=== PATIENT | female | born 1950 | race Caucasian/White ===

== ENCOUNTER 2016-03-08 08:49 | Emergency (ER) | payer MEDICARE, BC ==
[2016-03-08 09:03] VITALS: BP 177/79
--- NOTE | 2016-03-08 09:25 | UC ---
Morgan Mena Adam, scribed for [facility] MD on 03/08/16 at 0858 . Respiratory Complaint HPI - HPI Summary HPI Summary: Pt is a 65 year old female presenting with a cough and chest tightness for the past 5 days. She states that she has been bringing up a lot of phlegm and it has begun to appear discolored. She was taking Pertussin DM and Mucinex but her symptoms have persisted. She states that prednisone has helped with similar symptoms in the past. Pt also c/o chills. She was recently diagnosed with COPD and she has been using o2 at night in order to keep her sat level above 90. She also has a nebulizer which she has been using intermittently. She is currently 91% on room air. PMHx of HTN, COPD, GERD, and dyslipidemia. Pt smokes "less than 6 little cigars" a day. FMHx of cardiac disease and HTN. - History of Current Complaint Stated Complaint: COUGH Hx Obtained From: Patient Hx Last Menstrual Period: Years ago. Onset/Duration: Gradual Onset, Lasting Days, Still Present Timing: Constant Severity Initially: Moderate Severity Currently: Moderate Character: Cough: Productive - Bringing up discolored phlegm Aggravating Factors: Nothing Alleviating Factors: Bronchodilator - Nebulizer, o2, prednisone Associated Signs And Symptoms: Positive: Chills, Pleuritic Chest Pain - Allergies/Home Medications Allergies/Adverse Reactions: Allergies Allergy/AdvReac Type Severity Reaction Status Date / Time Azithromycin Allergy Hives Verified 07/31/15 16:28 Clindamycin Allergy Swelling Verified 07/31/15 16:28 Doxycycline Allergy Swelling Verified 07/31/15 16:28 Of Face,Lips,& Throat Penicillins Allergy Hives Verified 07/31/15 16:28 PMH/Surg Hx/FS Hx/Imm Hx Endocrine History Of: Reports: Dyslipidemia Denies: Diabetes, Thyroid Disease, Hyperthyroidism, Hypothyroidism Cardiovascular History Of: Reports: Cardiac Disorders - "Irregular heart beat-- but not on medications.", Hypertension Denies: Pacemaker/ICD, Myocardial Infarction, Congestive Heart Failure, Atrial Fibrillation, Deep Vein Thrombosis, Bleeding Disorders Respiratory History Of: Reports: COPD, Bronchitis Denies: Asthma GI/ History Of: Reports: Gastroesophageal Reflux, Ulcer - hx of gastric ulcer in her 20's. Denies: Gastrointestinal Bleed, Gall Bladder Disease, Kidney Stones, Diverticulitis, Renal Disease, Urosepsis Neurological History Of: Denies: TIA, CVA, Dementia, Seizures, Migraine Psychological History Of: Denies: Anxiety, Depression, Bipolar Disorder, Schizophrenia, Post Traumatic Stress Disorder Cancer History Of: Denies: Lung Cancer, Colorectal Cancer, Breast Cancer, Prostate Cancer, Cervical Cancer Other History Of: Negative For: HIV, Hepatitis C - Surgical History Surgical History: Yes Surgery Procedure, Year, and Place: hysterectomy,. neurosurgery. LEFT VFocal Cord Stripped - Family History Known Family History: Positive: Cardiac Disease, Hypertension - Social History Occupation: Retired Lives: Alone Alcohol Use: None Substance Use Type: None Smoking Status (MU): Light Every Day Tobacco Smoker Type: Cigars Amount Used/How Often: 1/2 ppd Length of Time of Smoking/Using Tobacco: 40 yrs Household Exposure Type: Cigars - Immunization History Most Recent Influenza Vaccination: 2014 Most Recent Tetanus Shot: unk Most Recent Pneumonia Vaccination: 2013 Review of Systems Constitutional: Chills Respiratory: Cough Cardiovascular: Chest Pain - Tightness with cough. Musculoskeletal: Other: - Chronic arm/shoulder pain All Other Systems Reviewed And Are Negative: Yes Physical Exam Triage Information Reviewed: Yes Appearance: Well-Appearing, No Pain Distress, Well-Nourished Vital Signs: Initial Vital Signs Temp 98.1 F 03/08/16 08:57 Pulse 96 03/08/16 08:57 Resp 18 03/08/16 08:57 BP 177/79 03/08/16 08:57 Pulse Ox 91 03/08/16 08:57 Eyes: Positive: Conjunctiva Clear ENT: Positive: Hearing grossly normal, Pharynx normal, TMs normal. Negative: Muffled/hoarse voice Neck: Positive: Supple, No Lymphadenopathy Respiratory: Positive: Other: - Scattered rhonchi with crackles in the left base. Cardiovascular: Positive: Other: - 1/6 systolic murmur Abdomen Description: Positive: Nontender, No Organomegaly, Soft Bowel Sounds: Positive: Present Musculoskeletal: Positive: Strength Intact, ROM Intact Neurological: Positive: Alert Psychological: Positive: Age Appropriate Behavior Skin: Negative: rashes Respiratory Course/Dx - Differential Dx/Diagnosis Differential Diagnosis/HQI/PQRI: Other - PNA vs bronchitis with bronchospasm vs COPD Provider Diagnoses: Exacerbation of COPD Discharge - Discharge Plan Condition: Stable Disposition: HOME Prescriptions: Levofloxacin TAB* [Levaquin TAB*] 500 mg PO DAILY #7 tab Prednisone 20 mg PO BID #6 tab MDD 3 Patient Education Materials: COPD (Chronic Obstructive Pulmonary Disease) (ED) , Chronic Lung Disease and Infection Prevention (ED) Referrals: Dennys Bhat MD [Primary Care Provider] - Additional Instructions: WE DISCUSSED: 1. Your COPD make your lungs more vulnerable to infection. 2. See instructions below. 3. Use your inhalation device at home 3 times a day for the next 2 days to open up your lungs. 4. Warm showers and hot tea and honey. 5. Predinsone for 3 days, 20mg, twice a day. 6. Levaquin for 7 days. 7. See your doctor as planned in 2 days. The documentation as recorded by the Morgan leigh Adam accurately reflects the service I personally performed and the decisions made by me, Steven Dixon MD.
== END 2016-03-08 09:35 | disposition home or self-care (01) ==
LOC: UCEAST 08:49
DX: J44.1 Chronic obstructive pulmonary disease with (acute) exacerbation (principal); Z88.1 Allergy status to other antibiotic agents; Z88.0 Allergy status to penicillin; F17.210 Nicotine dependence, cigarettes, uncomplicated
CPT/HCPCS: 99212; G0463

== ENCOUNTER 2016-11-05 07:14 | Emergency (ER) | payer MEDICARE, BC ==
[2016-11-05 07:25] VITALS: BP 144/73
--- NOTE | 2016-11-05 08:14 | UC ---
Dee Mena Rebecca, scribed for Fadumo Perez MD on 11/05/16 at 0730 . Respiratory Complaint HPI - HPI Summary HPI Summary: Pt is a 65 y/o F who presents to [facility] with concerns of bronchitis. She c/o cough, chest congestion, chills, bilateral ear pain and CP described as tightness secondary to congestion. Sx have been present for 4-5 days and have been worsening. Took Mucinex and Robitussin DM 3 days ago. Additionally c/o diarrhea and mild abdominal pain secondary to an ulcer that she is being treated for. Reports that she is in no pain currently, ranked pain 0/10 in triage. Denies vomiting and dysuria. Pt reports she experiences similar sx every year and was evaluated by [facility] when sx presented previously and was D/C with Rx for Levaquin and Prednisone. Pt confirms she has taken Keflex previously with no reactions. Mother is in a correction where there is bronchitis present. PMHx COPD - has an inhaler and nebulizer which she last used at 2100. Uses O2 at night. She admits to having issues with her kidneys, uncertain what her creatinine level is, but has an appt 11/09 with her PCP for f/u. - History of Current Complaint Chief Complaint: UCRespiratory Stated Complaint: COUGH RESP ISSUE Time Seen by Provider: 11/05/16 07:21 Hx Obtained From: Patient Hx Last Menstrual Period: Years ago. Onset/Duration: Lasting Days - 4-5 days, Still Present Severity Currently: None Pain Intensity: 0 Pain Scale Used: 0-10 Numeric Aggravating Factors: Nothing Alleviating Factors: Nothing Associated Signs And Symptoms: Positive: Chills, Nasal Congestion Related History: Similar Episode/Dx as: - Prior episodes recurring every year - Allergies/Home Medications Allergies/Adverse Reactions: Allergies Allergy/AdvReac Type Severity Reaction Status Date / Time Azithromycin Allergy Hives Verified 11/05/16 07:26 Clindamycin Allergy Swelling Verified 11/05/16 07:26 Doxycycline Allergy Swelling Verified 11/05/16 07:26 Of Face,Lips,& Throat Penicillins Allergy Hives Verified 11/05/16 07:26 PMH/Surg Hx/FS Hx/Imm Hx Cardiovascular History: Hypertension Respiratory History: COPD GI/ History: Ulcer - In her 20s Other History Of: Negative For: HIV, Hepatitis C - Surgical History Surgical History: Yes Surgery Procedure, Year, and Place: hysterectomy,. neurosurgery. LEFT VFocal Cord Stripped - Family History Known Family History: Positive: Cardiac Disease, Hypertension - Social History Alcohol Use: None Substance Use Type: None Smoking Status (MU): Light Every Day Tobacco Smoker Type: Cigars Amount Used/How Often: 1/2 ppd Length of Time of Smoking/Using Tobacco: 40 yrs Household Exposure Type: Cigars - Immunization History Most Recent Influenza Vaccination: 2014 Most Recent Tetanus Shot: unk Most Recent Pneumonia Vaccination: 2013 Review of Systems Constitutional: Chills Skin: Negative Eyes: Negative ENT: Ear Ache - Bilateral Respiratory: Cough, Other - Chest congestion Cardiovascular: Chest Pain - secondary to congestion Gastrointestinal: Abdominal Pain - mild, Diarrhea Genitourinary: Negative Motor: Negative Neurovascular: Negative Musculoskeletal: Negative Neurological: Negative Psychological: Negative All Other Systems Reviewed And Are Negative: Yes - Comments Additional Review of Systems Comments: NEGATIVE:Vomiting and dysuria. Physical Exam Triage Information Reviewed: Yes Appearance: Well-Appearing Vital Signs: Initial Vital Signs Temp 98.1 F 11/05/16 07:21 Pulse 83 11/05/16 07:21 Resp 20 11/05/16 07:21 BP 144/73 11/05/16 07:21 Pulse Ox 97 11/05/16 07:21 Vital Signs Reviewed: Yes Eye Exam: Normal Eyes: Positive: Conjunctiva Clear ENT: Positive: Pharyngeal erythema, TMs normal, Other: - Post nasal drip with no pharyngeal exudate Dental Exam: Normal Neck: Positive: Supple, Nontender, No Lymphadenopathy Respiratory: Positive: Lungs clear, No respiratory distress, No accessory muscle use, Decreased breath sounds - DIminished breath sounds bilaterally, Wheezing - Bialteral scattered wheezes, Other: - Speaking full sentences. Negative: Crackles, Rhonchi, Stridor Cardiovascular: Positive: RRR, No Murmur, Pulses Normal Abdomen Description: Positive: Nontender, Soft Musculoskeletal Exam: Normal Neurological Exam: Normal Psychological Exam: Normal Skin Exam: Normal Diagnostic Evaluation - Laboratory O2 Sat by Pulse Oximetry: 97 Respiratory Course/Dx - Course Course Of Treatment: Pt is a 65 y/o F who presents to [facility] with concerns of bronchitis. She c/o cough, chest congestion, chills, bilateral ear pain and CP described as tightness secondary to congestion. Sx have been present for 4-5 days and have been worsening. Took Mucinex and Robitussin DM 3 days ago. Additionally c/o diarrhea and mild abdominal pain secondary to an ulcer. Reports that she is in no pain currently, ranked pain 0/10 in triage. Denies vomiting and dysuria. Pt reports she experiences similar sx every year and was evaluated by [facility] when sx presented previously and was D/C with Rx for Levaquin and Prednisone. Pt confirms she has taken Keflex previously with no reactions. Mother is in a correction where there is bronchitis present. PMHx COPD - has an inhaler and nebulizer which she last used at 2100. Uses O2 at night. Pt will be D/C to home with Dx of bronchitis with Rx for Keflex and Prednsone, directions to take probiotics with on Abx and a follow up with her PCP. She understands and agrees. Elevated BP noted. Allergies noted. Medications reviewed this visit. -Will avoid quinolones b/c kidney disease. - discussed using minimal amt of prednisone as possible. -adv to stop smoking - Differential Dx/Diagnosis Provider Diagnoses: Bronchitis Discharge - Discharge Plan Condition: Stable Disposition: HOME Prescriptions: Cephalexin CAP* [Keflex CAP*] 500 mg PO TID #30 cap Prednisone 20 mg PO BID #10 tab Patient Education Materials: Acute Bronchitis (ED) Referrals: Dennys Bhat MD [Primary Care Provider] - 4 Days Additional Instructions: Make sure to take a probiotic daily while on antibiotics to help prevent a potential complication of antibiotic use called c diff. Some well known brands that can be found OTC are florastor, align and [employer]. Make sure to complete the entire prescription unless advised otherwise by your health care provider. We discusse risks of prednisone including but not limited to anxiety, agitation , insomnia, GI upset, elevated blood pressures and blood sugar readings, adrenal crisis and avascular necrosis of the hip. Make sure to use your nebulizer at least every 4-6 hrs. You should be using the oxygen regularly while you are sick. You should consider readdressing daily maintenance COPD inhalers with your PCP. The documentation as recorded by the Dee leigh Rebecca accurately reflects the service I personally performed and the decisions made by , Fadumo Perez MD.
== END 2016-11-05 08:08 | disposition home or self-care (01) ==
LOC: UCEAST 07:14
DX: J40 Bronchitis, not specified as acute or chronic (principal); R09.81 Nasal congestion; I10 Essential (primary) hypertension; J44.9 Chronic obstructive pulmonary disease, unspecified; Z90.710 Acquired absence of both cervix and uterus; Z88.1 Allergy status to other antibiotic agents; Z88.0 Allergy status to penicillin; F17.210 Nicotine dependence, cigarettes, uncomplicated
CPT/HCPCS: 99212; G0463

== ENCOUNTER 2018-03-29 10:44 | Emergency (ER) | payer MEDICARE, BC ==
--- NOTE | 2018-03-29 11:35 | ED ---
Complex/Multi-Sys Presentation - HPI Summary HPI Summary: 67 year old F brought in by ambulance to [facility] with a chief complaint of chest tightness, chest heaviness since one week, worse since two days ago. The patient rates the pain 8/10 in severity. Symptoms aggravated by nothing. Symptoms alleviated by nothing. Patient reports difficulty breathing, productive cough, increasing weakness. - History Of Current Complaint Chief Complaint: EDGeneral Time Seen by Provider: 03/29/18 11:19 Hx Obtained From: Patient Onset/Duration: Lasting Weeks - 1, Still Present, Worse Since - 2 days ago Timing: Constant Severity Currently: Severe Aggravating Factor(s): Nothing Alleviating Factor(s): Nothing Associated Signs And Symptoms: Positive: Other - difficulty breathing, productive cough, increasing weakness - Allergies/Home Medications Allergies/Adverse Reactions: Allergies Allergy/AdvReac Type Severity Reaction Status Date / Time azithromycin Allergy Hives Verified 03/29/18 11:07 clindamycin Allergy Swelling Verified 03/29/18 11:07 doxycycline Allergy Swelling Verified 03/29/18 11:07 Of Face,Lips,& Throat Penicillins Allergy Hives Verified 03/29/18 11:07 Home Medications: Home Medications Ascorbic Acid TAB* [Vitamin C TAB*] 500 mg PO DAILY 03/29/18 [History Confirmed 03/29/18] Irbesartan (NF) [Avapro (NF)] 150 mg PO DAILY 03/29/18 [History Confirmed ] Losartan TAB* [Cozaar TAB*] 25 mg PO DAILY 03/29/18 [History Confirmed 03/29/18] Multivitamins/Minerals TAB* [Theragran/minerals TAB*] 1 tab PO DAILY 03/29/18 [ History Confirmed 03/29/18] Ranitidine TAB (NF) [Zantac TAB (NF)] 150 mg PO BID 03/29/18 [History Confirmed 03/29/18] Rosuvastatin (NF) [Crestor] 20 mg PO DAILY 03/29/18 [History Confirmed 03/29/18] PMH/Surg Hx/FS Hx/Imm Hx Previously Healthy: No Endocrine/Hematology History: Denies: Hx Diabetes, Hx Thyroid Disease Cardiovascular History: Reports: Hx Hypercholesterolemia, Hx Hypertension Denies: Hx Congestive Heart Failure, Hx Deep Vein Thrombosis, Hx Myocardial Infarction, Hx Pacemaker/ICD Respiratory History: Reports: Hx Chronic Bronchitis, Hx Chronic Obstructive Pulmonary Disease (COPD), Other Respiratory Problems/Disorders - emphysema Denies: Hx Asthma, Hx Lung Cancer GI History: Reports: Hx Ulcer - hx of gastric ulcer in her 20's. Denies: Hx Gall Bladder Disease, Hx Gastrointestinal Bleed, Hx Urosepsis History: Denies: Hx Kidney Stones, Hx Renal Disease Sensory History: Reports: Hx Contacts or Glasses Opthamlomology History: Reports: Hx Contacts or Glasses Neurological History: Denies: Hx Dementia, Hx Migraine, Hx Seizures, Hx Transient Ischemic Attacks (TIA) Psychiatric History: Denies: Hx Anxiety, Hx Depression, Hx Schizophrenia, Hx Bipolar Disorder - Surgical History Surgery Procedure, Year, and Place: hysterectomy,. neurosurgery. LEFT VFocal Cord Stripped Infectious Disease History: No Infectious Disease History: Reports: Hx Shingles Denies: Hx Clostridium Difficile, Hx Hepatitis, Hx Human Immunodeficiency Virus (HIV), Hx of Known/Suspected MRSA, Hx Tuberculosis, History Other Infectious Disease, Traveled Outside the [place] in Last 30 Days - Family History Known Family History: Positive: Cardiac Disease, Hypertension - Social History Alcohol Use: None Hx Substance Use: No Substance Use Type: Reports: None Hx Tobacco Use: Yes Smoking Status (MU): Light Every Day Tobacco Smoker Type: Cigars Amount Used/How Often: 1/2 ppd Length of Time of Smoking/Using Tobacco: 40 yrs Review of Systems Positive: Other - chest tightness, chest heaviness Positive: Shortness Of Breath, Cough Neurological: Other - increasing weakness All Other Systems Reviewed And Are Negative: Yes Physical Exam - Summary Physical Exam Summary: Appearance: The patient is well-nourished in no acute distress and in no acute pain. Skin: The skin is warm and dry and skin color reflects adequate perfusion. HEENT: The head is normocephalic and atraumatic. The pupils are equal and reactive. The conjunctivae are clear and without drainage. Nares are patent and without drainage. Mouth reveals dry mucous membranes and the throat is without erythema and exudate. The external ears are intact. The ear canals are patent and without drainage. The tympanic membranes are intact. Neck: The neck is supple with full range of motion and non-tender. There are no carotid bruits. There is no neck vein distension. Respiratory: Decreased breath sounds Cardiovascular: Heart is regular rate and rhythm. There is no murmur or rub auscultated. There is no peripheral edema and pulses are symmetrical and equal. Abdomen: The abdomen is soft and non-tender. There are normal bowel sounds heard in all four quadrants and there is no organomegaly palpated. Musculoskeletal: There is no back tenderness noted. Extremities are non-tender with full range of motion. There is good capillary refill. There is no peripheral edema or calf tenderness elicited. Neurological: Patient is alert and oriented to person, place and time. The patient has symmetrical motor strength in all four extremities. Cranial nerves are grossly intact. Deep tendon reflexes are symmetrical and equal in all four extremities. Psychiatric: The patient has an appropriate affect and does not exhibit any anxiety or depression Triage Information Reviewed: Yes Vital Signs On Initial Exam: Initial Vitals Temp Pulse Resp BP Pulse Ox 98.1 F 86 18 162/79 100 03/29/18 11:01 03/29/18 11:01 03/29/18 11:01 03/29/18 11:01 03/29/18 11:01 Vital Signs Reviewed: Yes Diagnostics - Vital Signs Vital Signs Temp Pulse Resp BP Pulse Ox 03/29/18 11:01 98.1 F 86 18 162/79 100 - Laboratory Result Diagrams: 03/29/18 12:23 03/29/18 12:22 Lab Statement: Any lab studies that have been ordered have been reviewed, and results considered in the medical decision making process. - Radiology CXR Radiology Interpretation Completed By: Radiologist Summary of Radiographic Findings: 1. Stigmata of obstructive lung disease. No acute pulmonary or cardiac process evident. 2. Bone density appears decreased throughout. Osteoporotic appearing compression fractures at the approximate T4, T11, T12, and L1 levels compared with the 2015 exam without gross acute or subacute features. ED physician has reviewed this report. - EKG 1150 Cardiac Rate: NL - 78 BPM EKG Rhythm: Sinus Rhythm Summary of EKG Findings: Non-specific ST changes in anterior leads Complex Multi-Symp Course/Dx Course Of Treatment: Ms. Diaz presented to the emergency department complaining of fatigue, chest tightness and mild shortness of breath. She has a history of COPD. She complains of a productive cough. On exam she was nontoxic in appearance with stable vitals and clear lungs. She was given a DuoNeb and Solu-Medrol and IV fluids. At that point she felt better and was discharged with a diagnosis of bronchitis and COPD exacerbation. - Diagnoses Provider Diagnoses: Bronchitis, Dehydration Discharge - Sign-Out/Discharge Documenting (check all that apply): Patient Departure - Discharge Patient Received Moderate/Deep Sedation with Procedure: No - Discharge Plan Condition: Stable Disposition: HOME Prescriptions: Levofloxacin TAB* [Levaquin TAB*] 750 mg PO DAILY #10 tab methylPREDNISolone [Medrol Dosepak 4 MG*] 4 mg PO .SEE PATSY INSTRUCTION #1 tab Patient Education Materials: Dehydration (ED), Acute Bronchitis (ED) Referrals: Dennys Bhat MD [Primary Care Provider] - 3 Days Additional Instructions: Follow up with your primary care provider in 3 days. Return to the Emergency Department for new or worsening symptoms. - Billing Disposition and Condition Condition: STABLE Disposition: Home - Attestation Statements Document Initiated by Linda: Yes Documenting Scribe: Lay Gonzales Provider For Whom Linda is Documenting (Include Credential): Khadar Ibrahim MD Scribe Attestation: Lay Mena, scribed for Khadar Ibrahim MD on 03/29/18 at 2031. Scribe Documentation Reviewed: Yes Provider Attestation: The documentation as recorded by the siennaibLay [email or web address] accurately reflects the service I personally performed and the decisions made by , Khadar Ibrahim MD Status of Scribe Document: Viewed
[2018-03-29] MEDS ORDERED: methylPREDNISolone 125 MG* 2 ML VIAL IV ONE (11:45)
[2018-03-29] MEDS ORDERED: Albuterol/Ipratropium NEB.SOL* Albuterol 2.5 MG/Ipratropium 0.5 MG 3 ML INH ONE (11:45)
[2018-03-29 12:32] LABS: Influenza A Molecular NEGATIVE (Negative); Influenza B Molecular NEGATIVE (Negative)
[2018-03-29 12:36] LABS: ABS Basophils 0.1 10^3/ul (0-0.2); ABS Eosinophils 0 10^3/ul (0-0.6); ABS Lymphocytes 0.8 10^3/ul (1.0-4.8); ABS Monocytes 0.6 10^3/ul (0-0.8); ABS Neutrophils 6.3 10^3/ul (1.5-7.7); ABS Nucleated RBC 0 10^3/ul; Eosinophil % 0.4 %; Hematocrit 29 % (35-47); Hemoglobin 10.1 g/dl (12.0-16.0); Lymphocyte % 9.8 %; Mean Corpuscular HGB Conc 35 g/dl (31-36); Mean Corpuscular Hemoglobin 33 pg (27-31); Mean Corpuscular Volume 92 fL (80-97); Mean Platelet Volume 7.3 fL (7.4-10.4); Nucleated Red Blood Cells % 0; Platelet Count 343 10^3/ul (150-450); Red Cell Distribution Width 13 % (10.5-15); White Blood Count 7.7 10^3/ul (3.5-10.8)
[2018-03-29] MEDS ORDERED: NS 0.9% 1000 ML** 1,000 ML IV ONE (12:52)
[2018-03-29 13:07] LABS: Albumin 4.1 g/dL (3.2-5.2); Albumin/Globulin Ratio 2.1 (1-3); BUN/Creatinine Ratio 31.3 (8-20); C Reactive Protein 21.55 mg/L (<8.01); Calcium 9.2 mg/dL (8.6-10.3); EGFR African American 155.6 (>60); EGFR Non-African American 128.6 (>60); Potassium 3.9 mmol/L (3.5-5.0); Total Bilirubin 0.4 mg/dL (0.2-1.0); Total Protein 6.1 g/dL (6.4-8.9); Troponin I 0.02 ng/mL (<0.04)
[2018-03-29 16:55] VITALS: BP 151/70
== END 2018-03-29 16:56 | disposition home or self-care (01) ==
LOC: ED 10:44
DX: J40 Bronchitis, not specified as acute or chronic (principal); E86.0 Dehydration; R05 Cough; I10 Essential (primary) hypertension; R06.02 Shortness of breath; F17.210 Nicotine dependence, cigarettes, uncomplicated
CPT/HCPCS: 36415; 71046; 80053; 83605; 84484; 85025; 86140; 87040; 93005; 96361; 96374; 99284; A9270-GY; J2930

== ENCOUNTER 2018-04-04 13:46 | Inpatient (IN) | payer MEDICARE, BC ==
--- NOTE | 2018-04-04 15:04 | ED ---
Abdominal Pain/Female - HPI Summary HPI Summary: This patient is a 67-year-old female who presents to the emergency room with a chief complaint of being very weak and an accidental fall because of her weakness. Patient reports that about a week ago she was diagnosed with bronchitis and she was placed on Levaquin. Patient reports that her symptoms of productive cough and generalized weakness and getting worse. The patient has history of COPD. She also reports that since yesterday she noticed black stools with occasional bright red blood. The patient reports that her last colonoscopy was one and have years ago with [facility]. Patient denies any chest pain, denies any abdominal pain, denies any nausea or vomiting. Patient has no other complaints. - History of Current Complaint Chief Complaint: EDShortnessOfBreath Stated Complaint: WEAKNESS Time Seen by Provider: 04/04/18 14:19 Hx Obtained From: Patient Hx Last Menstrual Period: Years ago. ?: No Onset/Duration: Gradual Onset, Still Present, Worse Since Timing: Constant Severity Initially: Moderate Severity Currently: Moderate Pain Intensity: 0 Radiates: No Aggravating Factor(s): Nothing Alleviating Factor(s): Nothing Allergies/Adverse Reactions: Allergies Allergy/AdvReac Type Severity Reaction Status Date / Time azithromycin Allergy Hives Verified 03/29/18 11:07 clindamycin Allergy Swelling Verified 03/29/18 11:07 doxycycline Allergy Swelling Verified 03/29/18 11:07 Of Face,Lips,& Throat Penicillins Allergy Hives Verified 03/29/18 11:07 PMH/Surg Hx/FS Hx/Imm Hx Previously Healthy: No Endocrine/Hematology History: Denies: Hx Diabetes, Hx Thyroid Disease Cardiovascular History: Reports: Hx Hypercholesterolemia, Hx Hypertension Denies: Hx Congestive Heart Failure, Hx Deep Vein Thrombosis, Hx Myocardial Infarction, Hx Pacemaker/ICD Respiratory History: Reports: Hx Chronic Bronchitis, Hx Chronic Obstructive Pulmonary Disease (COPD), Other Respiratory Problems/Disorders - emphysema Denies: Hx Asthma, Hx Lung Cancer GI History: Reports: Hx Ulcer - hx of gastric ulcer in her 20's. Denies: Hx Gall Bladder Disease, Hx Gastrointestinal Bleed, Hx Urosepsis History: Denies: Hx Kidney Stones, Hx Renal Disease Sensory History: Reports: Hx Contacts or Glasses Opthamlomology History: Reports: Hx Contacts or Glasses Neurological History: Denies: Hx Dementia, Hx Migraine, Hx Seizures, Hx Transient Ischemic Attacks (TIA) Psychiatric History: Denies: Hx Anxiety, Hx Depression, Hx Schizophrenia, Hx Bipolar Disorder - Surgical History Surgery Procedure, Year, and Place: hysterectomy,. neurosurgery. LEFT VFocal Cord Stripped Infectious Disease History: No Infectious Disease History: Reports: Hx Shingles Denies: Hx Clostridium Difficile, Hx Hepatitis, Hx Human Immunodeficiency Virus (HIV), Hx of Known/Suspected MRSA, Hx Tuberculosis, History Other Infectious Disease, Traveled Outside the [place] in Last 30 Days - Family History Known Family History: Positive: Cardiac Disease, Hypertension - Social History Alcohol Use: None Hx Substance Use: No Substance Use Type: Reports: None Hx Tobacco Use: Yes Smoking Status (MU): Former Smoker Type: Cigars Amount Used/How Often: 1/2 ppd Length of Time of Smoking/Using Tobacco: 40 yrs Review of Systems Constitutional: Negative Positive: Fatigue, Other - Weakness Eyes: Negative ENT: Negative Cardiovascular: Negative Positive: Shortness Of Breath, Cough Positive: Other - Melena Genitourinary: Negative Musculoskeletal: Negative Skin: Negative Neurological: Negative Psychological: Normal All Other Systems Reviewed And Are Negative: Yes Physical Exam - Summary Physical Exam Summary: VITAL SIGNS: Reviewed. GENERAL: Patient is a thin female who is lying comfortable in the stretcher. Patient is not in any acute respiratory distress. HEAD AND FACE: No signs of trauma. No ecchymosis, hematomas or skull depressions. No sinus tenderness. EYES: PERRLA, EOMI x 2, No injected conjunctiva, no nystagmus. EARS: Hearing grossly intact. Ear canals and tympanic membranes are within normal limits. MOUTH: Oropharynx within normal limits. Small superficial abrasion in the lower lip. No need for sutures at this time NECK: Supple, trachea is midline, no adenopathy, no JVD, no carotid bruit, mild c-spine tenderness at palpation, neck with full ROM. CHEST: Symmetric, no tenderness at palpation LUNGS: Positive crackles at bases of lungs CVS: Regular rate and rhythm, S1 and S2 present, no murmurs or gallops appreciated. ABDOMEN: Soft, non-tender. No signs of distention. No rebound no guarding, and no masses palpated. Bowel sounds are normal. EXTREMITIES: FROM in all major joints, no edema, no cyanosis or clubbing. Right forearm skin abrasion NEURO: Alert and oriented x 3. No acute neurological deficits. Speech is normal and follows commands. SKIN: Dry and warm REctal exam: Normal sphincter tone, positive melena Vital Signs On Initial Exam: Initial Vitals Temp Pulse Resp BP Pulse Ox 98.8 F 112 20 119/54 98 04/04/18 13:54 04/04/18 13:54 04/04/18 13:54 04/04/18 13:54 04/04/18 13:54 Diagnostics - Vital Signs Vital Signs Temp Pulse Resp BP Pulse Ox 04/04/18 13:54 98.8 F 112 20 119/54 98 - Laboratory Result Diagrams: 04/04/18 14:39 04/04/18 14:39 Lab Statement: Any lab studies that have been ordered have been reviewed, and results considered in the medical decision making process. Abdominal Pain Fem Course/Dx - Course Course Of Treatment: Blood work shows wbcs of 9.4, hemoglobin 6.8, hematocrit 19 and platelets 136. BUN is 25, glucose 112, and total protein of 5.3. Therefore the patient is consistent with a GI bleed for which the patient was given IV fluids, Protonix and I consulted with Dr. Walker. I also order 2 units for PRBCs. Consent from the patient is in the chart. Since patient was complaining of neck pain and headache after she fell I decided to do a head CT and C-spine CT. impression: Is status post CODE CLERK shunt. With slight ventricles decreased in size compared to January 2007. No acute intracranial pathology. CT C-spine IMPRESSION: 1. OSTEOPENIA. 2. MILD DEGENERATIVE DISC DISEASE AND OSTEOARTHRITIS. 3. ATHEROSCLEROSIS. 4. NO ACUTE OSSEOUS INJURY TO THE CERVICAL SPINE. 5. INCIDENTALLY NOTED IS A 0.3 CM NODULE OF THE RIGHT LUNG APEX. THE RECOMMENDATIONS FOR FOLLOW UP AND MANAGEMENT OF AN INCIDENTALLY DETECTED PULMONARY NODULE LESS THAN 6 MM IN SIZE, IN A PATIENT WITHOUT A HISTORY OF MALIGNANCY, INCLUDE NO FOLLOW UP FOR A LOW-RISK. PATIENT OR OPTIONAL FOLLOW UP CT IN 12 MONTHS FOR A HIGH RISK PATIENT. I discussed my physical exam and findings with Dr. Purvis from the hospital services who accepted the patient for admission. The patient is hemodynamically stable alert and oriented 3. - Diagnoses Differential Diagnosis: Positive: Constipation, Diverticulitis, Other - GI bleed Provider Diagnoses: GI bleed, Head contusion, Neck pain - Critical Care Time Critical Care Time: 75-104 min Discharge - Sign-Out/Discharge Documenting (check all that apply): Patient Departure Patient Received Moderate/Deep Sedation with Procedure: No - Discharge Plan Condition: Stable Disposition: ADMITTED TO [facility] Referrals: Dennys Bhat MD [Primary Care Provider] - - Billing Disposition and Condition Condition: STABLE Disposition: Admitted to [facility]
[2018-04-04 15:07] LABS: ABS Basophils 0 10^3/ul (0-0.2); ABS Eosinophils 0 10^3/ul (0-0.6); ABS Lymphocytes 0.7 10^3/ul (1.0-4.8); ABS Monocytes 0.9 10^3/ul (0-0.8); ABS Neutrophils 7.9 10^3/ul (1.5-7.7); ABS Nucleated RBC 0 10^3/ul; Eosinophil % 0.1 %; Hematocrit 19 % (35-47); Hemoglobin 6.8 g/dl (12.0-16.0); Lymphocyte % 7.6 %; Mean Corpuscular HGB Conc 35 g/dl (31-36); Mean Corpuscular Hemoglobin 33 pg (27-31); Mean Corpuscular Volume 93 fL (80-97); Mean Platelet Volume 7.1 fL (7.4-10.4); Nucleated Red Blood Cells % 0; Platelet Count 436 10^3/ul (150-450); Red Blood Count 2.09 10^6/ul (4.00-5.40); Red Cell Distribution Width 14 % (10.5-15); White Blood Count 9.4 10^3/ul (3.5-10.8)
[2018-04-04] MEDS ORDERED: Pantoprazole IV* 40 MG IV ONE ×2 (15:13→17:41)
[2018-04-04] MEDS ORDERED: NS 0.9% 1000 ML** 1,000 ML IV ONE (15:13)
[2018-04-04 15:20] LABS: Albumin 3.3 g/dL (3.2-5.2); Albumin/Globulin Ratio 1.7 (1-3); BUN/Creatinine Ratio 46.3 (8-20); C Reactive Protein 6.64 mg/L (<8.01); Calcium 8.8 mg/dL (8.6-10.3); EGFR African American 135.8 (>60); EGFR Non-African American 112.3 (>60); Potassium 3.8 mmol/L (3.5-5.0); Total Bilirubin 0.2 mg/dL (0.2-1.0); Total Protein 5.3 g/dL (6.4-8.9)
[2018-04-04 15:22] LABS: Troponin I 0.01 ng/mL (<0.04)
[2018-04-04 16:02] LABS: Influenza A Molecular NEGATIVE (Negative); Influenza B Molecular NEGATIVE (Negative)
[2018-04-04] MEDS ORDERED: Ondansetron INJ* 2 MG/ML VIAL IV PRN (17:15)
[2018-04-04] MEDS ORDERED: Pantoprazole IV* 40 MG IV SCH (18:00)
--- NOTE | 2018-04-04 18:10 | CONS ---
GASTROENTEROLOGY CONSULT: DATE OF CONSULT: 04/04/18 REQUESTING PROVIDER: ED. Patient was seen in ED. HISTORY OF PRESENT ILLNESS: Ms. Daiz is a 67-year-old woman with a history of COPD, on continuous oxygen; hypertension; hyperlipidemia; GERD; and remote history of PUD, who presents to the ED with weakness and fall. The patient also reports melena concerning for GI bleed. GI consulted. On interview, Ms. Diaz says that she has been feeling poorly for the past one to two weeks. She was diagnosed about a week ago with bronchitis and was placed on a Medrol Dosepak and Levaquin. Shortly after starting these medications, she developed nausea and vomiting several times a day as well as abdominal pain and change in stools. She states that the nausea is fairly continuous. She vomits at least once or twice a day. Emesis consists of what she just tried to eat. She has not noticed any coffee-ground emesis or hematemesis. She complains of abdominal pain in the right lower quadrant with some radiation to the back as well as discomfort in upper abdomen. She has had a significant increase in GERD during this period of time. She describes feeling more constipated last week. For the past day and a half or so, she has been able to have some bowel movements. The bowel movements were initially quite hard and required manual removal of the stool balls, although the stool has been softer in the last 24 hours or so. Stool has been black. She did see some small amounts of bright red blood, which she felt was potentially hemorrhoid related. No large amounts of dark red blood or bright red blood seen. The patient had at least 4 black bowel movements earlier today and became quite weak during last bowel movement. She subsequently fell and hit her face resulting in abrasion to her lip. She denies any loss of consciousness during this fall. She presented to the ED for evaluation. On arrival to the ER, initial vital signs were notable for heart rate of 112 and a blood pressure of 119/54. Initial labs notable for a hemoglobin of 6.8 and hematocrit of 19. This is in comparison to a hemoglobin of 10.1 and a hematocrit of 29 on 03/29/18. Labs also notable for a mildly elevated BUN of 25. The patient was given IV fluids and a unit of blood was ordered. Symptomatically, she continues to have some heartburn and sore throat. She also complains of some upper abdominal discomfort and nausea. Ms. Diaz reports that she uses ibuprofen 800 mg daily. She also uses aspirin 81 mg daily. She thinks she is on some type of acid suppression medicine twice daily. Med rec reviewed and includes Zantac 150 twice daily is listed. The patient follows with a physician at [place]. She thinks that she has had an upper endoscopy and a colonoscopy performed within the last 1 to 2 years. She thinks there may have been a polyp or two removed from the colon. PAST MEDICAL HISTORY: Includes COPD, on continuous O2, hypertension; hyperlipidemia; GERD; episode of peptic ulcer disease when she was in her 20s. PAST SURGICAL HISTORY: Includes hysterectomy and a vocal cord surgery. MEDICATIONS: Include: 1. Avapro 150 daily. 2. Losartan 25 mg daily. 3. Crestor 20 mg daily. 4. Ranitidine 150 b.i.d. 5. Multivitamin. 6. Vitamin C. 7. Aspirin 81 mg daily. 8. Ibuprofen 800 mg daily Recently, she completed a course of Medrol Dosepak and Levaquin 750 mg daily. ALLERGIES: Include AZITHROMYCIN, CLINDAMYCIN, DOXYCYCLINE, and PENICILLIN. FAMILY HISTORY: No known GI or liver disease. SOCIAL HISTORY: The patient lives alone with 1 cat. She is a smoker and had most recently been smoking half a pack a day. She quit smoking 10 days ago. She denies any significant alcohol use. No drug use. REVIEW OF SYSTEMS: Notable for chronic COPD with intermittent bronchitis episodes. She uses supplemental oxygen. She has had a recent fracture in her spine after a fall and complains of some back pain. Her review of systems is otherwise negative except as mentioned above. PHYSICAL EXAM: Vital Signs: Most recent vital signs include a heart rate of 96, blood pressure 135/59, respiratory rate of 24, and 100% on 2.5 L. General: Chronically ill, frail-appearing woman, appears older than stated age, no acute distress. Speaks in complete sentences. HEENT: Small cut with dried blood on her lower lip. Mucous membranes mildly dry. Cardiovascular: Regular rate and rhythm. No murmurs, rubs, or gallops. Pulm: Coarse breath sounds and mild crackles at the bases. No wheezing. No significantly increased work of breathing. Abdomen: Positive bowel sounds. Soft, tender in the epigastrium. No rebound or guarding. Rectal: Not repeated. ED provider had recently performed rectal and noted melena. Extremities: No edema. Neuro: A and O x3. Grossly normal. DIAGNOSTIC STUDIES/LAB DATA: Labs reviewed. Notable for a white count of 9.4, hemoglobin of 6.8, hematocrit 19, platelets 436, MCV of 93. Comprehensive panel notable for a BUN of 25 with a creatinine of 0.54. Lactic acid is 0.7. LFTs normal with the exception of a low AST at 10. Flu swab negative. Imaging: The patient had a chest x-ray performed, which was negative for acute findings. She also had a noncontrast head CT, which was notable for SHEET WRITER shunt with slit-like ventricles, no intracranial pathology noted. She had a cervical spine CT performed, which demonstrated osteopenia, mild degenerative disk disease and osteoarthritis, 0.03 cm nodule of the right lung apex, atherosclerosis. IMPRESSION AND RECOMMENDATIONS: Ms. Diaz is a 67-year-old woman with a history of chronic obstructive pulmonary disease, on continuous O2; gastroesophageal reflux disease; and remote history of peptic ulcer disease, who is admitted with weakness, fall, and melena suggestive of an upper gastrointestinal bleed. Currently, patient is hemodynamically stable. Her mild tachycardia seems to have improved with IV fluids. Her blood pressure remains within normal limits. She is significantly anemic on labs, which appears to be acute on chronic given mild anemia noted last week. I am most suspicious for an upper GI bleed given the presence of melena as well as the mildly elevated BUN. The patient's risk factors for an upper gastrointestinal bleed include use of ibuprofen 800 mg daily, aspirin 81 mg daily, and recent steroid use. Differential includes: esophagitis, gastritis, PUD, [place]ul[place], AVM or mass. Colonic source of bleeding less likely. 1. Agree with blood transfusion and resuscitation. 2. Continue to monitor CBC every 8 hours. 3. Start pantoprazole IV b.i.d. 4. Clear diet today okay as long as the patient remains hemodynamically stable. NPO after midnight. 5. We will tentatively plan for EGD tomorrow for evaluation of upper gastrointestinal bleeding source. 6. Avoid NSAIDs. 7. Please obtain prior endoscopy reports from [facility] Please contact GI if acute change in clinical status. Thank you very much for this consult. [id number]/[facility] #: [id number] [facility] HOSPITALVernon
[2018-04-04] MEDS: Pantoprazole* 80 mg IN NS 80 MG/250 ML BAG IVPB SCH (19:17)
--- NOTE | 2018-04-04 21:25 | HP ---
HISTORY AND PHYSICAL: DATE OF ADMISSION: 04/04/18 PRIMARY CARE PROVIDER: Dennys Bhat MD. OTHER PROVIDER: Carmen Mckay MD. ATTENDING PHYSICIAN: Marguerite Purvis MD * (dictated by LETITIA Valladares ). CHIEF COMPLAINT: 1. Anemia. 2. Fall. HISTORY OF PRESENT ILLNESS: Ms. Diaz is a 67-year-old female with a past medical history of hypertension and hyperlipidemia, who presented to the ER today with complaints of falling due to weakness. She states that she fell around 11:30 this morning. She described feeling dizzy and lightheaded, and then having slid down the wall on her right side, and then falling to the floor in a controlled manner. She does state that she hit her head and that she does have pain in the right arm and shoulder. When asked where she has pain, she states "everything hurts." She states that her pain is a 9/10. She admits to using ibuprofen 200 mg every 5 to 6 hours for pain. Of note is that the patient was here approximately 1-1/2 weeks ago with shortness of breath and was diagnosed with bronchitis. She was placed on steroids and Levaquin. Today, she is found to be anemic with a hemoglobin of 6.8. She has a positive stool for occult blood. She admits to having melena that she describes as black and tarry. She states that she has had this for approximately 1-1/2 days. She states that today she had a reddish-black stool. She admits to decreased appetite, abdominal pain, and constipation. She states the abdominal pain and constipation are intermittent for several months. The patient states that she has been having difficulty eating, stating she feels like she always has a lump in her throat and she has difficulty swallowing. She reports a decreased appetite. She states that she sees an Ear, Nose, and Throat doctor, who is following her due to erosions in the esophagus and "enlarged vocal cords." She states that she has shortness of breath on occasion, abdominal pain, blurred vision, palpitations, dizziness, lightheadedness, and lower back pain. She denies hematochezia, nausea, vomiting, headache or pain in the calves. The patient states that her last colonoscopy was approximately 1-1/2 years ago. Her last EGD was approximately 6 months ago.While in the ER, she had an extensive workup, which included head and C-spine CT scans, an ECG, a chest x- ray, as well as blood work. The hospitalist team were asked to evaluate the patient for admission. PAST MEDICAL HISTORY: 1. Hypertension. 2. Hyperlipidemia. 3. Chronic obstructive pulmonary disease. 4. History of gastric ulcers when the patient was in her 20s. PAST SURGICAL HISTORY: Hysterectomy, left vocal cord stripped. HOME MEDICATIONS: 1. Albuterol 0.083 inhalation, nebulized, q.6 hours p.r.n. 2. Amlodipine 10 mg p.o. daily. 3. Ascorbic acid 500 mg p.o. daily, double in winter months. 4. Aspirin 81 mg p.o. daily. 5. Vitamins p.o. daily. 6. Losartan 50 mg 1 tab p.o. daily. 7. Ranitidine 1 tab p.o. b.i.d. 8. Rosuvastatin 20 mg p.o. daily. 9. Tramadol 50 mg 1 tab p.o. q.8 hours p.r.n., max daily dose 150. ALLERGIES: AZITHROMYCIN - hives, CLINDAMYCIN - swelling, DOXYCYCLINE - swelling of face, lips, and throat, PENICILLIN - hives. FAMILY HISTORY: Mother approximately 1 year ago. She had a history of atrial fibrillation and congestive heart failure. She of old age and had a hip fracture at that time. Father of brain cancer at the age of 73. Maternal grandfather had heart issues. The patient states that on the father's side of her family, there is type 2 diabetes. SOCIAL HISTORY: The patient states that she quit using tobacco approximately 10 days ago. She previously smoked a half-pack per day for about 40 years. The patient denies alcohol use. She states that she used to use alcohol socially, but no longer uses alcohol. The patient currently lives alone in her own house with her cat. In the event that she is unable to make her own decisions, she appoints either her son, Jayden Shaw, or her sister, Taylor Marquez, to make medical decisions for her. REVIEW OF SYSTEMS: A 10-point review of systems was performed and all the pertinent positives and negatives are in the HPI. All other systems are negative. PHYSICAL EXAMINATION GENERAL: Ms. Diaz is a well-developed, thin, older white woman, who is sitting up in bed. She is in no acute distress. She appears pale. She appears slightly older than her stated age. VITAL SIGNS: Temperature 98.8, heart rate 96, respiratory rate 24, oxygen saturation 100%, blood pressure 135/59. HEENT: Visual isaac are grossly intact. Her pupils are equally round and reactive to light. Extraocular movements are intact. Her sclerae are without icterus. Her hearing is grossly intact. External auditory canals are patent and free of cerumen. Tympanic membranes intact with visible landmarks. Nares are patent and nonerythematous with moist mucous membranes. Oral mucous membranes are slightly dry. There appear to be no lesions. The pharynx is clear. It is noted that the patient has an abrasion on the right lower lip. NECK: Full range of motion. Thyroid is not palpable. Trachea is at midline. There is no lymphadenopathy. CARDIOVASCULAR: S1 and S2 present. Regular rate and rhythm. There is a harsh holosystolic murmur, grade 3 holosystolic murmur. No rubs or gallops. No JVD. ABDOMEN: Bowel sounds in all quadrants. The abdomen is soft. The abdomen is diffusely tender to palpation. There is no hepatosplenomegaly. EXTREMITIES: Skin is warm bilaterally. The lower extremities are dry, with flaking skin. There is no edema. No clubbing or cyanosis. Radial pulses are 2 + bilaterally. Pedal pulses are not palpable. NEURO: The patient is awake, alert, and oriented x3. Cranial nerves are grossly intact. The patient is able to move all of her extremities. Motor strength is 4/5 in the upper and lower extremities bilaterally. DIAGNOSTIC STUDIES/LAB DATA: Chest x-ray 04/04/18, impression: No evidence for active cardiopulmonary disease. Brain CT 04/04/18, impression: Status post DEXIGRAPH OPERATOR shunting with slit-like ventricles , decreased in size compared to 01/31/07. No acute intracranial pathology. Cervical spine CT, 04/04/18, impression: Osteopenia, mild degenerative disc disease and osteoarthritis, atherosclerosis. No acute osseous injury to the cervical spine. Incidentally noted is a 0.3 cm nodule of the right lung apex. The recommendations for followup and management of an incidentally detected pulmonary nodule, less than 6 mm in size, in a patient without a history of malignancy include no followup for a low risk patients or optional followup CT in 12 months for higher risk patients. Laboratory Studies: WBC 9.4, RBC 2.09, HGB 6.8, HCT 19, platelets 436. Sodium 135, potassium 3.8, chloride 101, carbon dioxide 30, BUN 25, creatinine 0.54, lactic acid 0.7, calcium 8.8. Total bilirubin 0.20, AST 10, ALT 24, alk phos 48 , troponin 0.01, CRP 6.68, BNP 31, total protein 5.3. ASSESSMENT AND PLAN: Ms. Diaz is a 67-year-old female with a past medical history as described above, who presents to the ER today with complaints of weakness and fall, and was found to have anemia and possible gastrointestinal bleed. The patient will be admitted as inpatient for: 1. Anemia: Due to the presence of melena over the last couple days, it is likely that the patient has a gastrointestinal bleed. Gastroenterology has been consulted and are planning for an EGD tomorrow. Currently, with the patient's hemoglobin of 6.8, two units of packed red blood cells are ordered for transfusion. Protonix 40 was ordered in the ER. Another dose of Protonix 40 will be given for a loading dose total of 80, and then the patient will be placed on Protonix drip. The patient will be placed on clear liquid diet. She will be made n.p.o. after midnight. 2. Dysphagia: The patient is being followed with an Ear, Nose, and Throat doctor, Dr. Reeves. The patient states that she was told she has erosions in the esophagus plus enlarged vocal cords. The patient will have an EGD tomorrow. She may need a barium swallow if she continues to have dysphagia. 3. Fall: The patient was cleared via CT after her fall. Tylenol ordered for pain, morphine ordered p.r.n. severe pain. 4. Pulmonary nodule: As an incidental finding on the patient's neck CT, there is a 0.3 cm pulmonary nodule in the right lung apex. Due to the past history of smoking, recommended a followup CT in 12 months. The patient should follow up with her primary care physician for this. 5. Chronic obstructive pulmonary disease: Albuterol nebulizer solutions will be ordered, as at home. 6. Hypertension: Amlodipine and losartan will be continued. 7. Coronary artery disease: Crestor will be continued. Hold aspirin. 8. Fluids, electrolytes, and nutrition: The patient will be placed on a clear liquid diet until midnight and then n.p.o. after midnight in preparation for EGD tomorrow. 9. Code status: The patient is full code. 10. DVT prophylaxis: Based on the DVT Risk Assessment, the patient is moderate risk. Chemical prophylaxis will be deferred at the time as the patient may have gastrointestinal bleed. SCDs have been ordered. TIME SPENT: Approximately 60 minutes were spent on this admission, greater than half of that time was spent with the patient and her sister obtaining history, performing a physical, and reviewing the plan of care. The case has been reviewed with my attending, Dr. Purvis, who is in agreement with the plan of care. LETITIA SERRA [id number]/[facility] #: [id number] [place]
[2018-04-04] MEDS: Famotidine TAB* 20 MG PO SCH (21:40)
[2018-04-04] MEDS: Morphine VIAL* 4 MG/ML VIAL (1 ml vial) IV PRN (22:52)
[2018-04-05] MEDS: Acetaminophen TAB* 325 MG PO PRN (00:47)
[2018-04-05] MEDS: Albuterol 2.5 MG/3 ML NEB.SOL* (0.083%) INH PRN (01:15)
[2018-04-05] MEDS: Pantoprazole* 80 mg IN NS 80 MG/250 ML BAG IVPB SCH ×2 (05:23→19:50)
[2018-04-05 07:00] LABS: Calcium 8.5 mg/dL (8.6-10.3); EGFR African American 148.5 (>60); EGFR Non-African American 122.7 (>60); Potassium 3.7 mmol/L (3.5-5.0)
[2018-04-05 07:02] LABS: ABS Basophils 0 10^3/ul (0-0.2); ABS Eosinophils 0 10^3/ul (0-0.6); ABS Lymphocytes 1.1 10^3/ul (1.0-4.8); ABS Monocytes 0.6 10^3/ul (0-0.8); ABS Neutrophils 4.4 10^3/ul (1.5-7.7); ABS Nucleated RBC 0 10^3/ul; Eosinophil % 0.4 %; Hematocrit 24 % (35-47); Hemoglobin 8.3 g/dl (12.0-16.0); Mean Corpuscular HGB Conc 35 g/dl (31-36); Mean Corpuscular Hemoglobin 32 pg (27-31); Mean Corpuscular Volume 90 fL (80-97); Mean Platelet Volume 6.9 fL (7.4-10.4); Nucleated Red Blood Cells % 0; Platelet Count 297 10^3/ul (150-450); Red Blood Count 2.64 10^6/ul (4.00-5.40); Red Cell Distribution Width 15 % (10.5-15); White Blood Count 6.2 10^3/ul (3.5-10.8)
[2018-04-05] MEDS: NS 0.9% 1000 ML** 1,000 ML IV SCH ×2 (08:30→19:54)
[2018-04-05] MEDS: Morphine VIAL* 4 MG/ML VIAL (1 ml vial) IV PRN ×2 (08:30→23:02)
[2018-04-05] MEDS: Losartan TAB* 25 MG PO SCH (08:36)
[2018-04-05] MEDS: Famotidine TAB* 20 MG PO SCH (08:37)
[2018-04-05] MEDS: amLODIPine TAB* 5 MG PO SCH (08:37)
[2018-04-05] MEDS: Multivitamins/Minerals TAB PO SCH (08:37)
[2018-04-05] MEDS: Atorvastatin* 40 MG TAB PO SCH (08:37)
[2018-04-05] MEDS: Ascorbic Acid TAB* 500 MG PO SCH (08:37)
[2018-04-05] MEDS ORDERED: Losartan TAB* 25 MG PO SCH (09:00)
[2018-04-05] MEDS ORDERED: Morphine INJ* 2 MG/ML 1 ML SYRINGE (TWO MG - NEW SYRINGE VERSION) IV ONE (11:26)
--- NOTE | 2018-04-05 15:40 | PN ---
Subjective Date of Service: 04/05/18 Interval History: Patient seen this morning. She was on clear liquid tolerating it well. no fever or chills. Awaiting GI procedure for EGD. Currently on protonix drip, s/ p 2 units pRBC;s yesterday. BP stable Past Medical History: Unchanged from Admission Objective Active Medications: Acetaminophen (Tylenol Tab*) 650 mg PO Q4H PRN PRN Reason: FEVER/PAIN Last Admin: 04/05/18 00:47 Dose: 650 mg Albuterol (Ventolin 2.5 Mg/3 Ml Neb.Mariam*) 2.5 mg INH Q6H PRN PRN Reason: SOB/WHEEZING Last Admin: 04/05/18 01:15 Dose: 2.5 mg Amlodipine Besylate (Norvasc Tab*) 10 mg PO DAILY [facility] Last Admin: 04/05/18 08:37 Dose: 10 mg Ascorbic Acid (Vitamin C Tab*) 500 mg PO DAILY [facility] Last Admin: 04/05/18 08:37 Dose: 500 mg Atorvastatin Calcium (Lipitor*) 40 mg PO DAILY [facility] Last Admin: 04/05/18 08:37 Dose: 40 mg Sodium Chloride (Ns 0.9% 1000 Ml) 1,000 mls @ 75 mls/hr IV PER RATE [facility] Last Admin: 04/05/18 08:30 Dose: 75 mls/hr Pantoprazole Sodium (Protonix Iv Bag*) 80 mg in 250 mls @ 25 mls/hr IVPB Q10H [facility] Last Admin: 04/05/18 05:23 Dose: 25 mls/hr Losartan Potassium (Cozaar Tab*) 50 mg PO DAILY [facility] Last Admin: 04/05/18 08:36 Dose: 50 mg Morphine Sulfate (Morphine Vial*) 2 mg IV Q4H PRN PRN Reason: SEVERE PAIN Last Admin: 04/05/18 08:30 Dose: 2 mg Multivitamins/Minerals (Theragran/Minerals Tab*) 1 tab PO DAILY [facility] Last Admin: 04/05/18 08:37 Dose: 1 tab Ondansetron HCl (Zofran Inj*) 4 mg IV Q4H PRN PRN Reason: NAUSEA/VOMITING Vital Signs - 8 hr 04/05/18 04/05/18 04/05/18 08:00 08:30 08:31 Temperature Pulse Rate Respiratory 18 18 Rate Blood Pressure 145/52 (mmHg) O2 Sat by Pulse Oximetry 04/05/18 04/05/18 04/05/18 10:53 11:30 11:31 Temperature 98.7 F Pulse Rate 66 Respiratory 20 18 16 Rate Blood Pressure 143/43 (mmHg) O2 Sat by Pulse 100 Oximetry 04/05/18 12:24 Temperature Pulse Rate Respiratory 18 Rate Blood Pressure (mmHg) O2 Sat by Pulse Oximetry Oxygen Devices in Use Now: Nasal Cannula Appearance: awake, alert. no acute distress Eyes: No Scleral Icterus Ears/Nose/Mouth/Throat: Clear Oropharnyx Neck: NL Appearance and Movements; NL JVP, Trachea Midline Respiratory: Symmetrical Chest Expansion and Respiratory Effort, Clear to Auscultation Cardiovascular: RRR Abdominal: NL Sounds; No Tenderness; No Distention Extremities: No Edema - Nutrition: Malnutrition Diagnosis/Plan Malnutrition Assessment by Registered Dietitian: Malnutrition Assessment Clinical Characteristics Chronic,Moderate Malnutrition Assessment: - 16-19% wt loss x past ~ 9 months Criteria - Moderate temporal and clavicle muscle wasting - < 75% estimated energy expenditure > 1 month Malnutrition Assessment: Will offer an oral nutritional supplement, such Interventions as Ensure Enlive, upon diet advancement as indicated. Malnutrition Assessment: Goals 1. Ultimately adequate intake to promote wt repletion and maintain hydration w/o additional undesired wt loss. Result Diagrams: 04/05/18 06:29 04/05/18 06:29 Microbiology and Other Data: Microbiology 04/04/18 14:45 Stool Occult Blood ([facility]) - Final Stool 04/04/18 14:25 Influenza Types A,B Antigen - Final Nasopharyngeal Specimen received for Influenza A/B Molecular testing Assess/Plan/Problems-Billing Assessment: 67 year old female admitted for fall due to dizziness she was found to be anemic with Hct of 19 associated with melena and NSAID's use for acute on chronic low back pain. S/p 2 units pRBC on admission, currently on Protonix drip awaiting EGD - Patient Problems (1) GI bleed due to NSAIDs Current Visit: Yes Status: Acute Code(s): K92.2 - GASTROINTESTINAL HEMORRHAGE, UNSPECIFIED; T39.395A - ADVERSE EFFECT OF NONSTEROIDAL ANTI- INFLAMMATORY DRUGS, INIT SNOMED Code(s): 59700397 Comment: - Given melena and NSAID's I suspect due to upper GI bleed. - S/p 2 units pRBC's on admission - On Protonix drip - Awaiting formal GI consultations and EGD procedure. (2) Anemia Current Visit: Yes Status: Acute Code(s): D64.9 - ANEMIA, UNSPECIFIED SNOMED Code(s): 329844294 Comment: - Given melena and NSAID's I suspect due to upper GI bleed. - S/p 2 units pRBC's on admission - On Protonix drip - Awaiting formal GI consultations and EGD procedure. (3) Back pain Current Visit: Yes Status: Acute Code(s): M54.9 - DORSALGIA, UNSPECIFIED SNOMED Code(s): 729548782 Comment: - Morphine 2 mg IV prn now for abdominal pain but it serve to help her back. Will Discontinue once done wiht EGD - On tyelnol prn. - Educated patient to avoid any further NSAID at home (4) COPD (chronic obstructive pulmonary disease) Current Visit: Yes Status: Acute Code(s): J44.9 - CHRONIC OBSTRUCTIVE PULMONARY DISEASE, UNSPECIFIED SNOMED Code(s): 19728270 Comment: - PRN albuterol (5) Hypertension Current Visit: No Status: Acute Code(s): I10 - ESSENTIAL (PRIMARY) HYPERTENSION SNOMED Code(s): 92855368 Comment: - SBP stable. Continue losartan and amlodipine. (6) Hyperlipidemia Current Visit: No Status: Chronic Code(s): E78.5 - HYPERLIPIDEMIA, UNSPECIFIED SNOMED Code(s): 04761190 Comment: - Continue atorvastatin 40 mg HS. (7) DVT prophylaxis Current Visit: Yes Status: Acute Code(s): [id number] - SNOMED Code(s): 798740554 Comment: SCD given her GI bleed
[2018-04-05] MEDS ORDERED: Midazolam* 1 MG/ML 10 ML VIAL (10 MG) ONE (16:05)
[2018-04-05] MEDS ORDERED: fentaNYL* 50 MCG/ML 2 ML VIAL (100 MCG VIAL) ONE (16:05)
--- NOTE | 2018-04-05 17:49 | PN ---
Progress Note - Progress Note Date of Service: 04/05/18 Note: GI EGD Note Findings: No fresh or old blood in stomach or esophagus. Atrophic gastric mucosa. Fresh blood in duodenum. 2 ulcers 0.8 in bulb prox cloop with oozing. Treated with bicap at 20W, epi 2cc each with good effect. Further distal brisk dieulafoy lesion distal c-loop active arterial squirt. 3 endoclips placed with good effect. Bicap at 20W to area. No further bleeding A/P ICU H/H q6, stat now Keep 2 units PRBC on hold High risk for rebleeding, let surgical service know of existance. If rebleed consider 2nd look, embolization or surgery. Discussed with Dr. Derick Gamez 04/05/18 [id number]
[2018-04-05 18:27] LABS: Hematocrit 26 % (35-47); Hemoglobin 8.7 g/dl (12.0-16.0)
[2018-04-05] MEDS ORDERED: EPINEPHrine SYR 0.1MG/ML* SYRINGE ONE (18:49)
--- NOTE | 2018-04-05 22:05 | PRO ---
CC: Dennys Bhat MD * ESOPHAGOGASTRODUODENOSCOPY REPORT: DATE OF PROCEDURE: 04/05/18 PRIMARY CARE PHYSICIAN: Dennys Bhat MD INDICATION FOR PROCEDURE: Melena. PROCEDURE PERFORMED: Complete esophagogastroduodenoscopy with hemostasis, Endoclip placement, BICAP, and epinephrine injection. MEDICATIONS GIVEN: Include 10 mg IV midazolam, 100 mcg IV fentanyl. DESCRIPTION OF PROCEDURE: After the EGD procedure including the risks, benefits , and alternatives, with the risks not limited to perforation, surgery, missed lesions, and/or were explained to the patient, written informed consent was obtained. IV medication was given and a bite-block was placed between the teeth. The adult Olympus gastroscope was inserted into the oropharynx, into the tubular esophagus. The tubular esophagus had mild variability to the GE junction but no gross blood or lesions. The scope was advanced through the lower esophageal sphincter into the stomach. There was atrophic mucosa noted, but no distinct ulceration. On retroflexion, no hiatal hernia or significant Raul erosion was visualized. The scope was then advanced through the widely patent pylorus. Here, fresh blood was found. In the posterior portion of the bulb, there was a 0.8 cm ulcer with oozing actively. Next to this, about 1 to 2 cm into the C-loop, was an additional ulceration, again with active oozing around that area. Each ulcer was injected with 2 cc of epinephrine and BICAP'd at 20 garcia with good effect. No further bleeding was noted from each of these ulcers. I then continued into the further portion of the C-loop where again bright red blood was noted. At the superior portion of the distal C-loop, a Dieulafoy lesion with active arterial squirt was noted. This was briskly bleeding at the time. Three Endoclips were placed over this vessel with very good effect. At the conclusion of the Endoclip placement, no further bleeding was noted. I did BICAP and touch up the area at 20 garcia for further hemostasis. At the conclusion of the procedure, there was no active bleeding at the time. The scope was then removed from the patient. She tolerated the procedure well, and due to the findings, was transferred to the ICU for further care. IMPRESSION: 1. Complete esophagogastroduodenoscopy with hemostasis. BICAP, epinephrine injection, and Endoclip placement. 2. Actively bleeding arterial Dieulafoy lesion, distal C-loop, status post 3 Endoclips and BICAP as above. 3. Two active oozing ulcerations in the posterior bulb and proximal C-loop, treated with BICAP at 20 garcia and epinephrine 1:10,000, 4 cc total, 2 per ulcer. RECOMMENDATIONS: Recommend transferring the patient to ICU for closer monitoring given the active bleed. Even though hemostasis appears to be achieved, high risk for rebleeding. I discussed with the primary care physician , Dr. Dennys Bhat, who will let the surgical service know the patient to be aware in case further ongoing blood loss. Recommend H and H q.6 hours. We will get a stat hemoglobin at this point. Continue with PPI drip. Keep 2 units of PRBCs on hold at all times. If rebleed, consider second look endoscopy versus embolization versus surgery pending clinical course. At some point, a H. pylori stool antigen should be done; however, she did consume a large amount of NSAIDs and cystitis is more likely the etiology of her ulcers. [id number]/[facility] #: [id number] [facility]NERSVern[facility]
[2018-04-06 00:28] LABS: Hematocrit 23 % (35-47); Hemoglobin 7.9 g/dl (12.0-16.0)
[2018-04-06] MEDS: Albuterol 2.5 MG/3 ML NEB.SOL* (0.083%) INH PRN ×2 (00:48→19:55)
[2018-04-06] MEDS: Morphine VIAL* 4 MG/ML VIAL (1 ml vial) IV PRN ×3 (04:03→15:49)
[2018-04-06] MEDS ORDERED: Pantoprazole* 80 mg IN NS 80 MG/250 ML BAG IVPB SCH (06:00)
[2018-04-06] MEDS: Pantoprazole* 80 mg IN NS 80 MG/250 ML BAG IVPB SCH ×2 (06:15→17:34)
[2018-04-06 06:48] LABS: ABS Basophils 0 10^3/ul (0-0.2); ABS Eosinophils 0 10^3/ul (0-0.6); ABS Lymphocytes 1.2 10^3/ul (1.0-4.8); ABS Monocytes 0.6 10^3/ul (0-0.8); ABS Neutrophils 6.6 10^3/ul (1.5-7.7); ABS Nucleated RBC 0 10^3/ul; Eosinophil % 0.6 %; Hematocrit 29 % (35-47); Hemoglobin 9.7 g/dl (12.0-16.0); Lymphocyte % 13.9 %; Mean Corpuscular HGB Conc 34 g/dl (31-36); Mean Corpuscular Hemoglobin 31 pg (27-31); Mean Corpuscular Volume 90 fL (80-97); Mean Platelet Volume 6.8 fL (7.4-10.4); Nucleated Red Blood Cells % 0; Platelet Count 279 10^3/ul (150-450); Red Blood Count 3.18 10^6/ul (4.00-5.40); Red Cell Distribution Width 16 % (10.5-15); White Blood Count 8.5 10^3/ul (3.5-10.8)
[2018-04-06 06:52] LABS: BUN/Creatinine Ratio 28.6 (8-20); Calcium 8.2 mg/dL (8.6-10.3); EGFR African American 181.6 (>60); Magnesium 1.9 mg/dL (1.9-2.7); Phosphorus 3.9 mg/dL (2.5-5.0); Potassium 4.2 mmol/L (3.5-5.0)
[2018-04-06] MEDS: NS 0.9% 1000 ML** 1,000 ML IV SCH ×2 (09:24→23:03)
[2018-04-06] MEDS: Atorvastatin* 40 MG TAB PO SCH ×2 (09:33→17:34)
[2018-04-06] MEDS: Losartan TAB* 25 MG PO SCH (09:33)
[2018-04-06] MEDS: amLODIPine TAB* 5 MG PO SCH (09:33)
[2018-04-06 12:13] LABS: Hematocrit 29 % (35-47); Hemoglobin 9.9 g/dl (12.0-16.0)
--- NOTE | 2018-04-06 16:54 | PN ---
Subjective Date of Service: 04/06/18 Interval History: Patient seen today, in ICU. She did require 2 units last night after her midnight H/H. This morning is up to Hct 29. 12 noon stable at noon. no active bleed. Currently is NPO will advance to clear liquid. Will have her out of bed to chair. Complains of dry mouth. Past Medical History: Unchanged from Admission Objective Active Medications: Acetaminophen (Tylenol Tab*) 650 mg PO Q4H PRN PRN Reason: FEVER/PAIN Last Admin: 04/05/18 00:47 Dose: 650 mg Albuterol (Ventolin 2.5 Mg/3 Ml Neb.Mariam*) 2.5 mg INH Q6H PRN PRN Reason: SOB/WHEEZING Last Admin: 04/06/18 00:48 Dose: 2.5 mg Amlodipine Besylate (Norvasc Tab*) 10 mg PO DAILY [facility] Last Admin: 04/06/18 09:33 Dose: 10 mg Atorvastatin Calcium (Lipitor*) 40 mg PO DAILY [facility] Last Admin: 04/05/18 08:37 Dose: 40 mg Sodium Chloride (Ns 0.9% 1000 Ml) 1,000 mls @ 75 mls/hr IV PER RATE [facility] Last Admin: 04/06/18 09:24 Dose: 75 mls/hr Pantoprazole Sodium (Protonix Iv Bag*) 80 mg in 250 mls @ 25 mls/hr IVPB Q10H [facility] Last Admin: 04/06/18 06:15 Dose: 25 mls/hr Losartan Potassium (Cozaar Tab*) 50 mg PO DAILY [facility] Last Admin: 04/06/18 09:33 Dose: 50 mg Morphine Sulfate (Morphine Vial*) 2 mg IV Q4H PRN PRN Reason: SEVERE PAIN Last Admin: 04/06/18 15:49 Dose: 2 mg Multivitamins/Minerals (Theragran/Minerals Tab*) 1 tab PO DAILY [facility] Last Admin: 04/05/18 08:37 Dose: 1 tab Ondansetron HCl (Zofran Inj*) 4 mg IV Q4H PRN PRN Reason: NAUSEA/VOMITING Vital Signs - 8 hr 04/06/18 04/06/18 04/06/18 09:00 09:01 09:15 Temperature Pulse Rate 55 55 57 Respiratory 15 17 16 Rate Blood Pressure 143/46 125/46 (mmHg) O2 Sat by Pulse 99 99 100 Oximetry 04/06/18 04/06/18 04/06/18 09:26 09:30 09:31 Temperature Pulse Rate 65 Respiratory 20 15 21 Rate Blood Pressure 135/71 (mmHg) O2 Sat by Pulse 100 Oximetry 04/06/18 04/06/18 04/06/18 09:45 10:00 10:15 Temperature Pulse Rate 57 61 60 Respiratory 17 21 13 Rate Blood Pressure 148/47 157/56 140/49 (mmHg) O2 Sat by Pulse 100 100 100 Oximetry 04/06/18 04/06/18 04/06/18 10:30 10:45 11:00 Temperature Pulse Rate 66 64 64 Respiratory 22 18 24 Rate Blood Pressure 156/58 148/53 131/52 (mmHg) O2 Sat by Pulse 100 99 99 Oximetry 04/06/18 04/06/18 04/06/18 11:17 11:30 11:45 Temperature Pulse Rate 70 67 74 Respiratory 16 18 18 Rate Blood Pressure 146/46 136/46 125/52 (mmHg) O2 Sat by Pulse 99 99 99 Oximetry 04/06/18 04/06/18 04/06/18 12:00 12:15 12:31 Temperature Pulse Rate 70 69 84 Respiratory 25 20 21 Rate Blood Pressure 126/47 144/54 135/67 (mmHg) O2 Sat by Pulse 99 99 99 Oximetry 04/06/18 04/06/18 13:00 15:49 Temperature 97.1 F Pulse Rate Respiratory 19 Rate Blood Pressure (mmHg) O2 Sat by Pulse Oximetry Oxygen Devices in Use Now: Nasal Cannula Appearance: Awake, alert. no acute distress Ears/Nose/Mouth/Throat: NL Teeth, Lips, Gums Neck: NL Appearance and Movements; NL JVP, Trachea Midline Respiratory: Symmetrical Chest Expansion and Respiratory Effort, Clear to Auscultation Cardiovascular: NL Sounds; No Murmurs; No JVD Abdominal: NL Sounds; No Tenderness; No Distention Skin: No Rash or Ulcers Neurological: Alert and Oriented x 3 - Nutrition: Malnutrition Diagnosis/Plan Malnutrition Assessment by Registered Dietitian: Malnutrition Assessment Clinical Characteristics Chronic,Moderate Malnutrition Assessment: - 16-19% wt loss x past ~ 9 months Criteria - Moderate temporal and clavicle muscle wasting - < 75% estimated energy expenditure > 1 month Malnutrition Assessment: Will offer an oral nutritional supplement, such Interventions as Ensure Enlive, upon diet advancement as indicated. Malnutrition Assessment: Goals 1. Ultimately adequate intake to promote wt repletion and maintain hydration w/o additional undesired wt loss. Result Diagrams: 04/06/18 12:00 04/06/18 06:12 Microbiology and Other Data: Microbiology 04/04/18 14:45 Stool Occult Blood ([facility]) - Final Stool 04/04/18 14:25 Influenza Types A,B Antigen - Final Nasopharyngeal Specimen received for Influenza A/B Molecular testing Assess/Plan/Problems-Billing Assessment: 67 year old female admitted for fall due to dizziness she was found to be anemic with Hct of 19 associated with melena and NSAID's use for acute on chronic low back pain. S/p 4 units pRBC since admission, currently on Protonix drip awaiting s/p EGD on 04/05/18 with bleeding Duodenal ulcer - Patient Problems (1) GI bleed due to NSAIDs Current Visit: Yes Status: Acute Code(s): K92.2 - GASTROINTESTINAL HEMORRHAGE, UNSPECIFIED; T39.395A - ADVERSE EFFECT OF NONSTEROIDAL ANTI- INFLAMMATORY DRUGS, INIT SNOMED Code(s): 17209180 Comment: - presented with melena and due to NSAID's - S/p 4 units pRBC's so far since admission - On Protonix drip day # 2 - s/p EGD 04/05/18 which revealed: "Fresh blood in duodenum. 2 ulcers 0.8 in bulb prox cloop with oozing. Treated with bicap at 20W, epi 2cc each with good effect. Further distal brisk dieulafoy lesion distal c-loop active arterial squirt. 3 endoclips placed with good effect. Bicap at 20W to area. No further bleeding" - Remains in ICU, I will plan to keep her in ICU as I just started on Clear liquid in case she restart to bleed. H/H continue Q 6hrs till am (2) Anemia Current Visit: Yes Status: Acute Code(s): D64.9 - ANEMIA, UNSPECIFIED SNOMED Code(s): 689311052 Comment: - secondary to upper GI bleed. - S/p 4 units pRBC's since admission - On Protonix drip day # 2 - F/u H/H Q 6hrs (3) Back pain Current Visit: Yes Status: Acute Code(s): M54.9 - DORSALGIA, UNSPECIFIED SNOMED Code(s): 759930030 Comment: - Morphine 2 mg IV prn now for abdominal pain but it serve to help her back. Will Discontinue once she is up and participating with PT more - On tyelnol prn. - Educated patient to avoid any further NSAID at home (4) COPD (chronic obstructive pulmonary disease) Current Visit: Yes Status: Acute Code(s): J44.9 - CHRONIC OBSTRUCTIVE PULMONARY DISEASE, UNSPECIFIED SNOMED Code(s): 11392914 Comment: - PRN albuterol (5) Hypertension Current Visit: No Status: Acute Code(s): I10 - ESSENTIAL (PRIMARY) HYPERTENSION SNOMED Code(s): 52872757 Comment: - SBP stable. Continue losartan and amlodipine. (6) Hyperlipidemia Current Visit: No Status: Chronic Code(s): E78.5 - HYPERLIPIDEMIA, UNSPECIFIED SNOMED Code(s): 02651580 Comment: - Continue atorvastatin 40 mg HS. (7) DVT prophylaxis Current Visit: Yes Status: Acute Code(s): BFT3110 - SNOMED Code(s): 907247687 Comment: SCD given her GI bleed
[2018-04-06] MEDS: Multivitamins/Minerals TAB PO SCH (17:34)
--- NOTE | 2018-04-06 18:09 | PN ---
Progress Note - Progress Note Date of Service: 04/06/18 Note: GASTROENTEROLOGY FOLLOW-UP NOTE IE: Patient underwent EGD yesterday. See procedure note for details -- actively bleeding duodenal ulcers and Dieulafoy in duodenum. Treated with epinephrine, Bicap, and clip placement with hemostasis. Received 1 unit of blood overnight. Repeat CBC increased post-transfusion and has remained stable on recheck (Hct 29 ). VSS. No bowel movements. S: Patient complains of back/tailbone pain. Denies any GI symptoms. Hungry. O: VSS. Exam - Elderly woman. NAD. Wearing supplemental O2 CV - RRR Pulm - Breathing comfortably Abd- Soft, NT, ND Labs reviewed. Hct 23 overnight. Up to 29 x 2 post-transfusion. A/P: 67yF with history of COPD on O2, remote PUD, and chronic NSAID use, who is admitted with melena and acute on chronic anemia. EGD demonstrated actively bleeding duodenal ulcers and spurting arterial Dieulafoy lesion. Status-post thermal and mechanical hemostasis as well as epinephrine injection with hemostasis. Hgb dropped post-procedure but responded appropriately to transfusion. Repeat CBC stable. No additional bowel movements. - Continue to monitor CBC every 6-8 hours - Continue IV PPI BID - Avoid NSAIDs! - Check H pylori stool Ag - Can advance to clear diet this evening given stable CBC. Please contact GI with acute clinical change or questions. Will continue to follow. Carmen Mckay MD Gastroenterology
[2018-04-06 19:06] LABS: Hematocrit 28 % (35-47); Hemoglobin 9.6 g/dl (12.0-16.0)
[2018-04-07 00:53] LABS: Hematocrit 26 % (35-47); Hemoglobin 8.9 g/dl (12.0-16.0)
[2018-04-07] MEDS: Pantoprazole* 80 mg IN NS 80 MG/250 ML BAG IVPB SCH ×2 (03:25→13:55)
[2018-04-07 06:15] LABS: ABS Basophils 0 10^3/ul (0-0.2); ABS Eosinophils 0.1 10^3/ul (0-0.6); ABS Lymphocytes 0.7 10^3/ul (1.0-4.8); ABS Monocytes 0.7 10^3/ul (0-0.8); ABS Neutrophils 6.5 10^3/ul (1.5-7.7); ABS Nucleated RBC 0 10^3/ul; Eosinophil % 0.8 %; Hematocrit 28 % (35-47); Hemoglobin 9.8 g/dl (12.0-16.0); Mean Corpuscular HGB Conc 35 g/dl (31-36); Mean Corpuscular Hemoglobin 32 pg (27-31); Mean Corpuscular Volume 90 fL (80-97); Mean Platelet Volume 6.6 fL (7.4-10.4); Nucleated Red Blood Cells % 0; Platelet Count 255 10^3/ul (150-450); Red Blood Count 3.12 10^6/ul (4.00-5.40); Red Cell Distribution Width 16 % (10.5-15)
[2018-04-07 06:31] LABS: BUN/Creatinine Ratio 26.2 (8-20); Calcium 8.1 mg/dL (8.6-10.3); EGFR African American 181.6 (>60)
[2018-04-07] MEDS: amLODIPine TAB* 5 MG PO SCH (09:36)
[2018-04-07] MEDS: Losartan TAB* 25 MG PO SCH (09:36)
[2018-04-07] MEDS: Multivitamins/Minerals TAB PO SCH (09:36)
[2018-04-07] MEDS: Atorvastatin* 40 MG TAB PO SCH (09:36)
--- NOTE | 2018-04-07 09:36 | PN ---
Subjective Date of Service: 04/07/18 Interval History: Patient seen in ICU. Stable overnight. NO active bleed. H/H stable slightly improved. Tolerated clear liquid well. NO chest pain or shortness of breath other than her baseline of COPD related SOB. Past Medical History: Unchanged from Admission Objective Active Medications: Acetaminophen (Tylenol Tab*) 650 mg PO Q4H PRN PRN Reason: FEVER/PAIN Last Admin: 04/05/18 00:47 Dose: 650 mg Albuterol (Ventolin 2.5 Mg/3 Ml Neb.Mariam*) 2.5 mg INH Q6H PRN PRN Reason: SOB/WHEEZING Last Admin: 04/06/18 19:55 Dose: 2.5 mg Amlodipine Besylate (Norvasc Tab*) 10 mg PO DAILY [facility] Last Admin: 04/06/18 09:33 Dose: 10 mg Atorvastatin Calcium (Lipitor*) 40 mg PO DAILY [facility] Last Admin: 04/06/18 17:34 Dose: 40 mg Sodium Chloride (Ns 0.9% 1000 Ml) 1,000 mls @ 75 mls/hr IV PER RATE [facility] Last Admin: 04/06/18 23:03 Dose: 75 mls/hr Pantoprazole Sodium (Protonix Iv Bag*) 80 mg in 250 mls @ 25 mls/hr IVPB Q10H [facility] Stop: 04/07/18 17:00 Last Admin: 04/07/18 03:25 Dose: 25 mls/hr Losartan Potassium (Cozaar Tab*) 50 mg PO DAILY [facility] Last Admin: 04/06/18 09:33 Dose: 50 mg Morphine Sulfate (Morphine Vial*) 2 mg IV Q4H PRN PRN Reason: SEVERE PAIN Last Admin: 04/06/18 15:49 Dose: 2 mg Multivitamins/Minerals (Theragran/Minerals Tab*) 1 tab PO DAILY [facility] Last Admin: 04/06/18 17:34 Dose: Not Given Ondansetron HCl (Zofran Inj*) 4 mg IV Q4H PRN PRN Reason: NAUSEA/VOMITING Pantoprazole Sodium (Protonix Tab*) 40 mg PO BID [facility] Vital Signs - 8 hr 04/07/18 04/07/18 04/07/18 01:45 02:00 02:15 Temperature Pulse Rate 54 54 46 Respiratory 19 Rate Blood Pressure 112/41 114/40 123/41 (mmHg) O2 Sat by Pulse 100 100 100 Oximetry 04/07/18 04/07/18 04/07/18 02:30 02:40 02:45 Temperature Pulse Rate 46 45 45 Respiratory 19 14 23 Rate Blood Pressure 117/43 94/62 112/38 (mmHg) O2 Sat by Pulse 100 100 100 Oximetry 04/07/18 04/07/18 04/07/18 03:00 03:15 03:30 Temperature Pulse Rate 46 51 47 Respiratory 14 17 13 Rate Blood Pressure 112/42 137/46 155/47 (mmHg) O2 Sat by Pulse 100 100 100 Oximetry 04/07/18 04/07/18 04/07/18 03:46 04:00 04:02 Temperature Pulse Rate 46 44 45 Respiratory 13 14 14 Rate Blood Pressure 116/42 117/41 (mmHg) O2 Sat by Pulse 100 100 100 Oximetry 04/07/18 04/07/18 04/07/18 04:17 04:31 04:45 Temperature Pulse Rate 46 61 53 Respiratory 15 19 16 Rate Blood Pressure 179/47 138/47 114/66 (mmHg) O2 Sat by Pulse 100 99 99 Oximetry 04/07/18 04/07/18 04/07/18 05:00 05:01 05:15 Temperature Pulse Rate 55 57 50 Respiratory 14 15 Rate Blood Pressure 146/46 137/52 (mmHg) O2 Sat by Pulse 99 98 97 Oximetry 04/07/18 04/07/18 04/07/18 05:31 05:45 05:56 Temperature Pulse Rate 54 50 Respiratory 13 16 14 Rate Blood Pressure 139/56 140/62 (mmHg) O2 Sat by Pulse 99 97 Oximetry 04/07/18 04/07/18 04/07/18 06:00 06:01 08:00 Temperature 99.1 F Pulse Rate 44 46 Respiratory 16 14 Rate Blood Pressure 136/48 (mmHg) O2 Sat by Pulse 100 100 Oximetry Oxygen Devices in Use Now: Nasal Cannula Appearance: Awake alert. no distress Eyes: No Scleral Icterus, - - EOMI Ears/Nose/Mouth/Throat: NL Teeth, Lips, Gums Neck: NL Appearance and Movements; NL JVP Respiratory: Symmetrical Chest Expansion and Respiratory Effort, - - transmitted upper airway breath sounds. Cardiovascular: NL Sounds; No Murmurs; No JVD Abdominal: NL Sounds; No Tenderness; No Distention Extremities: No Edema Neurological: Alert and Oriented x 3 - Nutrition: Malnutrition Diagnosis/Plan Malnutrition Assessment by Registered Dietitian: Malnutrition Assessment Clinical Characteristics Chronic,Moderate Malnutrition Assessment: - 16-19% wt loss x past ~ 9 months Criteria - Moderate temporal and clavicle muscle wasting - < 75% estimated energy expenditure > 1 month Malnutrition Assessment: Will offer an oral nutritional supplement, such Interventions as Ensure Enlive, upon diet advancement as indicated. Malnutrition Assessment: Goals 1. Ultimately adequate intake to promote wt repletion and maintain hydration w/o additional undesired wt loss. Result Diagrams: 04/07/18 06:09 04/07/18 06:09 Microbiology and Other Data: Microbiology 04/04/18 14:45 Stool Occult Blood ([facility]) - Final Stool 04/04/18 14:25 Influenza Types A,B Antigen - Final Nasopharyngeal Specimen received for Influenza A/B Molecular testing Assess/Plan/Problems-Billing Assessment: 67 year old female admitted for fall due to dizziness she was found to be anemic with Hct of 19 associated with melena and NSAID's use for acute on chronic low back pain. S/p 4 units pRBC since admission, s/p Protonix drip awaiting s/p EGD on 04/05/18 with bleeding Duodenal ulcer - Patient Problems (1) GI bleed due to NSAIDs Current Visit: Yes Status: Acute Code(s): K92.2 - GASTROINTESTINAL HEMORRHAGE, UNSPECIFIED; T39.395A - ADVERSE EFFECT OF NONSTEROIDAL ANTI- INFLAMMATORY DRUGS, INIT SNOMED Code(s): 42366563 Comment: - presented with melena and due to NSAID's - S/p 4 units pRBC's so far since admission - On Protonix drip day # 3; will transition to PO protonix 40 mg bid - s/p EGD 04/05/18 which revealed: "Fresh blood in duodenum. 2 ulcers 0.8 in bulb prox cloop with oozing. Treated with bicap at 20W, epi 2cc each with good effect. Further distal brisk dieulafoy lesion distal c-loop active arterial squirt. 3 endoclips placed with good effect. Bicap at 20W to area. No further bleeding" - will transfer out of ICU, advance to full liquid. Tolerated Clear liquid. H/ H stable for 24hrs. AM labs routinely (2) Anemia Current Visit: Yes Status: Acute Code(s): D64.9 - ANEMIA, UNSPECIFIED SNOMED Code(s): 994444319 Comment: - secondary to upper GI bleed. - S/p 4 units pRBC's since admission - On Protonix drip day # 3; transfer to floor. change to protonix 40 mg bid this evening - H/H stable (3) Back pain Current Visit: Yes Status: Acute Code(s): M54.9 - DORSALGIA, UNSPECIFIED SNOMED Code(s): 846563459 Comment: - will D/c Morphine 2 mg IV prn now for abdominal pain - On tyelnol prn. out of bed ambulate bid/ - Educated patient to avoid any further NSAID at home (4) COPD (chronic obstructive pulmonary disease) Current Visit: Yes Status: Acute Code(s): J44.9 - CHRONIC OBSTRUCTIVE PULMONARY DISEASE, UNSPECIFIED SNOMED Code(s): 90563016 Comment: - PRN albuterol (5) Hypertension Current Visit: No Status: Acute Code(s): I10 - ESSENTIAL (PRIMARY) HYPERTENSION SNOMED Code(s): 46992161 Comment: - SBP stable. Continue losartan and amlodipine. (6) Hyperlipidemia Current Visit: No Status: Chronic Code(s): E78.5 - HYPERLIPIDEMIA, UNSPECIFIED SNOMED Code(s): 52936747 Comment: - Continue atorvastatin 40 mg HS. (7) DVT prophylaxis Current Visit: Yes Status: Acute Code(s): OSG1387 - SNOMED Code(s): 478945860 Comment: SCD given her GI bleed
[2018-04-07] MEDS: Acetaminophen TAB* 325 MG PO PRN (12:03)
--- NOTE | 2018-04-07 13:09 | PN ---
Progress Note - Progress Note Date of Service: 04/07/18 Note: Gastroenterology Progress Note IE/S: - Hgb remains stable - No bowel movements - No GI complaints O: VSS GEN: Pleasant, elderly woman. NAD. Sitting in chair. CV: RRR Pulm: On O2. No increased work of breathing noted. Abd: NT/ND. Labs- Hct 29 > 28 > 26 > 28 (no transfusion) A/P: 67yF with COPD on O2, remote PUD, and chronic NSAID use admitted with melena and acute on chronic anemia. EGD demonstrated actively bleeding duodenal ulcers and spurting Dieulafoy lesion s/p epinephrine and mechanical and thermal therapy with hemostasis. CBC remains stable. No further bowel movements. Awaiting bed on floor. - Continue to monitor CBC every 8-12 hours - Continue IV PPI BID - Agree with advancing to full liquid diet. Would keep on this diet for another 24 hours or so. - Check H pylori stool Ag - Avoid NSAIDs Please contact GI with any acute clinical change. Carmen Mckay MD Gastroenterology
[2018-04-07] MEDS: Albuterol 2.5 MG/3 ML NEB.SOL* (0.083%) INH PRN (17:41)
[2018-04-07] MEDS: Pantoprazole TAB * 40 MG TAB PO SCH (21:27)
[2018-04-08] MEDS: Acetaminophen TAB* 325 MG PO PRN ×3 (00:22→18:41)
[2018-04-08 05:50] LABS: ABS Basophils 0 10^3/ul (0-0.2); ABS Eosinophils 0 10^3/ul (0-0.6); ABS Lymphocytes 0.7 10^3/ul (1.0-4.8); ABS Monocytes 0.5 10^3/ul (0-0.8); ABS Neutrophils 4.6 10^3/ul (1.5-7.7); ABS Nucleated RBC 0 10^3/ul; Eosinophil % 0.7 %; Hematocrit 30 % (35-47); Hemoglobin 9.8 g/dl (12.0-16.0); Lymphocyte % 12.5 %; Mean Corpuscular HGB Conc 33 g/dl (31-36); Mean Corpuscular Hemoglobin 30 pg (27-31); Mean Corpuscular Volume 91 fL (80-97); Mean Platelet Volume 6.6 fL (7.4-10.4); Nucleated Red Blood Cells % 0; Platelet Count 282 10^3/ul (150-450); Red Blood Count 3.27 10^6/ul (4.00-5.40); Red Cell Distribution Width 16 % (10.5-15); White Blood Count 5.8 10^3/ul (3.5-10.8)
[2018-04-08 05:58] LABS: Magnesium 1.7 mg/dL (1.9-2.7); Potassium 3.4 mmol/L (3.5-5.0)
[2018-04-08 06:04] LABS: EGFR African American 181.6 (>60); Phosphorus 3.1 mg/dL (2.5-5.0)
[2018-04-08] MEDS: Albuterol 2.5 MG/3 ML NEB.SOL* (0.083%) INH PRN ×2 (07:20→14:08)
[2018-04-08] MEDS: Pantoprazole* 80 mg IN NS 80 MG/250 ML BAG IVPB SCH (07:21)
[2018-04-08] MEDS: Ascorbic Acid TAB* 500 MG PO SCH (07:22)
[2018-04-08] MEDS ORDERED: Potassium Chlor TAB* 20 MEQ TAB.ER PO ONE (08:36)
[2018-04-08] MEDS ORDERED: Magnesium Oxide TAB* 400 MG PO ONE (08:37)
[2018-04-08] MEDS: Pantoprazole TAB * 40 MG TAB PO SCH ×2 (09:46→20:08)
[2018-04-08] MEDS: Losartan TAB* 25 MG PO SCH (09:46)
[2018-04-08] MEDS: Atorvastatin* 40 MG TAB PO SCH (09:47)
[2018-04-08] MEDS: amLODIPine TAB* 5 MG PO SCH (09:47)
[2018-04-08] MEDS: Multivitamins/Minerals TAB PO SCH (09:47)
[2018-04-08] MEDS: guaiFENesin ER TAB 600 MG PO PRN ×2 (14:24→20:07)
--- NOTE | 2018-04-08 15:22 | PN ---
Subjective Date of Service: 04/08/18 Interval History: Patient seen today, doing well. still coughing. no active bleed. remain on full liquid. I discussed with GI to continue full liquid today and advance to soft mechanical in am. She will be able to be transferred in am Past Medical History: Unchanged from Admission Objective Active Medications: Acetaminophen (Tylenol Tab*) 650 mg PO Q4H PRN PRN Reason: FEVER/PAIN Last Admin: 04/08/18 12:01 Dose: 650 mg Albuterol (Ventolin 2.5 Mg/3 Ml Neb.Mariam*) 2.5 mg INH Q6H PRN PRN Reason: SOB/WHEEZING Last Admin: 04/08/18 14:08 Dose: 2.5 mg Amlodipine Besylate (Norvasc Tab*) 10 mg PO DAILY [facility] Last Admin: 04/08/18 09:47 Dose: 10 mg Atorvastatin Calcium (Lipitor*) 40 mg PO DAILY [facility] Last Admin: 04/08/18 09:47 Dose: 40 mg Guaifenesin (Mucinex*) 600 mg PO BID PRN PRN Reason: CONGESTION Last Admin: 04/08/18 14:24 Dose: 600 mg Losartan Potassium (Cozaar Tab*) 50 mg PO DAILY [facility] Last Admin: 04/08/18 09:46 Dose: 50 mg Magnesium Oxide (Magox 400 Tab*) 400 mg PO BID [facility] Multivitamins/Minerals (Theragran/Minerals Tab*) 1 tab PO DAILY [facility] Last Admin: 04/08/18 09:47 Dose: 1 tab Ondansetron HCl (Zofran Inj*) 4 mg IV Q4H PRN PRN Reason: NAUSEA/VOMITING Pantoprazole Sodium (Protonix Tab*) 40 mg PO BID [facility] Last Admin: 04/08/18 09:46 Dose: 40 mg Potassium Chloride (Klor Con Er Tab*) 20 meq PO DAILY [facility] Vital Signs - 8 hr 04/08/18 04/08/18 04/08/18 07:21 07:50 08:00 Temperature 97.9 F Pulse Rate 56 59 Respiratory 17 16 16 Rate Blood Pressure 135/37 (mmHg) O2 Sat by Pulse 100 100 Oximetry 04/08/18 11:39 Temperature 98.3 F Pulse Rate 75 Respiratory 16 Rate Blood Pressure 145/59 (mmHg) O2 Sat by Pulse 100 Oximetry Oxygen Devices in Use Now: Nasal Cannula Appearance: Awake, alert. no disttress Eyes: No Scleral Icterus, - Ears/Nose/Mouth/Throat: NL Teeth, Lips, Gums Neck: NL Appearance and Movements; NL JVP, Trachea Midline Respiratory: Symmetrical Chest Expansion and Respiratory Effort, - - transmitted upper airway breathsound Cardiovascular: NL Sounds; No Murmurs; No JVD Abdominal: NL Sounds; No Tenderness; No Distention Neurological: Alert and Oriented x 3 - Nutrition: Malnutrition Diagnosis/Plan Malnutrition Assessment by Registered Dietitian: Malnutrition Assessment Clinical Characteristics Chronic,Moderate Malnutrition Assessment: - 16-19% wt loss x past ~ 9 months Criteria - Moderate temporal and clavicle muscle wasting - < 75% estimated energy expenditure > 1 month Malnutrition Assessment: Will offer an oral nutritional supplement, such Interventions as Ensure Enlive, upon diet advancement as indicated. Malnutrition Assessment: Goals 1. Ultimately adequate intake to promote wt repletion and maintain hydration w/o additional undesired wt loss. Result Diagrams: 04/08/18 05:41 04/08/18 05:41 Microbiology and Other Data: Microbiology 04/04/18 14:45 Stool Occult Blood ([facility]) - Final Stool 04/04/18 14:25 Influenza Types A,B Antigen - Final Nasopharyngeal Specimen received for Influenza A/B Molecular testing Assess/Plan/Problems-Billing Assessment: 67 year old female admitted for fall due to dizziness she was found to be anemic with Hct of 19 associated with melena and NSAID's use for acute on chronic low back pain. S/p 4 units pRBC since admission, s/p Protonix drip awaiting s/p EGD on 04/05/18 with bleeding Duodenal ulcer - Patient Problems (1) GI bleed due to NSAIDs Current Visit: Yes Status: Acute Code(s): K92.2 - GASTROINTESTINAL HEMORRHAGE, UNSPECIFIED; T39.395A - ADVERSE EFFECT OF NONSTEROIDAL ANTI- INFLAMMATORY DRUGS, INIT SNOMED Code(s): 36737235 Comment: - presented with melena and due to NSAID's - S/p 4 units pRBC's total this admission - s/p Protonix drip day # 3; On PO protonix 40 mg bid - s/p EGD 04/05/18 which revealed: "Fresh blood in duodenum. 2 ulcers 0.8 in bulb prox cloop with oozing. Treated with bicap at 20W, epi 2cc each with good effect. Further distal brisk dieulafoy lesion distal c-loop active arterial squirt. 3 endoclips placed with good effect. Bicap at 20W to area. No further bleeding" - continue full liquid. advance to soft mechanical in am and possible discharge in am (2) Anemia Current Visit: Yes Status: Acute Code(s): D64.9 - ANEMIA, UNSPECIFIED SNOMED Code(s): 601942444 Comment: - secondary to upper GI bleed. - S/p 4 units pRBC's - s/p Protonix drip day # 3; on protonix 40 mg bid - H/H stable (3) Back pain Current Visit: Yes Status: Acute Code(s): M54.9 - DORSALGIA, UNSPECIFIED SNOMED Code(s): 292535292 Comment: - off Morphine 2 mg IV prn - On tyelnol prn. out of bed ambulate bid/ - Educated patient to avoid any further NSAID at home (4) COPD (chronic obstructive pulmonary disease) Current Visit: Yes Status: Acute Code(s): J44.9 - CHRONIC OBSTRUCTIVE PULMONARY DISEASE, UNSPECIFIED SNOMED Code(s): 66222717 Comment: - PRN albuterol (5) Hypertension Current Visit: No Status: Acute Code(s): I10 - ESSENTIAL (PRIMARY) HYPERTENSION SNOMED Code(s): 32419481 Comment: - SBP stable. Continue losartan and amlodipine. (6) Hyperlipidemia Current Visit: No Status: Chronic Code(s): E78.5 - HYPERLIPIDEMIA, UNSPECIFIED SNOMED Code(s): 81209768 Comment: - Continue atorvastatin 40 mg HS. (7) DVT prophylaxis Current Visit: Yes Status: Acute Code(s): XEA5111 - SNOMED Code(s): 487660667 Comment: SCD given her GI bleed
[2018-04-08] MEDS: Potassium Chlor TAB* 20 MEQ TAB.ER PO SCH (17:26)
[2018-04-08] MEDS: Magnesium Oxide TAB* 400 MG PO SCH (17:26)
[2018-04-09] MEDS: Acetaminophen TAB* 325 MG PO PRN ×5 (02:29→21:57)
[2018-04-09 06:12] LABS: ABS Basophils 0 10^3/ul (0-0.2); ABS Eosinophils 0 10^3/ul (0-0.6); ABS Lymphocytes 0.8 10^3/ul (1.0-4.8); ABS Monocytes 0.5 10^3/ul (0-0.8); ABS Neutrophils 4.3 10^3/ul (1.5-7.7); ABS Nucleated RBC 0 10^3/ul; Eosinophil % 0.5 %; Hematocrit 26 % (35-47); Hemoglobin 9.1 g/dl (12.0-16.0); Lymphocyte % 14.3 %; Mean Corpuscular HGB Conc 35 g/dl (31-36); Mean Corpuscular Hemoglobin 31 pg (27-31); Mean Corpuscular Volume 90 fL (80-97); Mean Platelet Volume 6.7 fL (7.4-10.4); Nucleated Red Blood Cells % 0; Platelet Count 287 10^3/ul (150-450); Red Blood Count 2.89 10^6/ul (4.00-5.40); Red Cell Distribution Width 16 % (10.5-15); White Blood Count 5.6 10^3/ul (3.5-10.8)
[2018-04-09 06:31] LABS: BUN/Creatinine Ratio 10.8 (8-20); Calcium 8.2 mg/dL (8.6-10.3); EGFR African American 210.1 (>60); EGFR Non-African American 173.7 (>60); Magnesium 1.7 mg/dL (1.9-2.7); Phosphorus 2.8 mg/dL (2.5-5.0); Potassium 3.8 mmol/L (3.5-5.0)
[2018-04-09] MEDS: Losartan TAB* 25 MG PO SCH (09:21)
[2018-04-09] MEDS: Magnesium Oxide TAB* 400 MG PO SCH ×2 (09:22→20:29)
[2018-04-09] MEDS: amLODIPine TAB* 5 MG PO SCH (09:23)
[2018-04-09] MEDS: Potassium Chlor TAB* 20 MEQ TAB.ER PO SCH (09:24)
[2018-04-09] MEDS: Pantoprazole TAB * 40 MG TAB PO SCH ×2 (09:24→20:30)
[2018-04-09] MEDS: Atorvastatin* 40 MG TAB PO SCH (09:24)
[2018-04-09] MEDS: Multivitamins/Minerals TAB PO SCH (09:25)
[2018-04-09] MEDS: Albuterol 2.5 MG/3 ML NEB.SOL* (0.083%) INH PRN ×2 (09:49→14:57)
[2018-04-09] MEDS: guaiFENesin ER TAB 600 MG PO PRN (09:49)
--- NOTE | 2018-04-09 17:07 | PN ---
Subjective Date of Service: 04/09/18 Interval History: Feels bloated Generally achy No BM Would like diet advanced Past Medical History: Unchanged from Admission Objective Active Medications: Acetaminophen (Tylenol Tab*) 650 mg PO Q4H PRN PRN Reason: FEVER/PAIN Last Admin: 04/09/18 13:03 Dose: 650 mg Albuterol (Ventolin 2.5 Mg/3 Ml Neb.Mariam*) 2.5 mg INH Q6H PRN PRN Reason: SOB/WHEEZING Last Admin: 04/09/18 14:57 Dose: 2.5 mg Amlodipine Besylate (Norvasc Tab*) 10 mg PO DAILY [facility] Last Admin: 04/09/18 09:23 Dose: 10 mg Atorvastatin Calcium (Lipitor*) 40 mg PO DAILY [facility] Last Admin: 04/09/18 09:24 Dose: 40 mg Guaifenesin (Mucinex*) 600 mg PO BID PRN PRN Reason: CONGESTION Last Admin: 04/09/18 09:49 Dose: 600 mg Losartan Potassium (Cozaar Tab*) 50 mg PO DAILY [facility] Last Admin: 04/09/18 09:21 Dose: 50 mg Magnesium Oxide (Magox 400 Tab*) 400 mg PO BID [facility] Last Admin: 04/09/18 09:22 Dose: 400 mg Multivitamins/Minerals (Theragran/Minerals Tab*) 1 tab PO DAILY [facility] Last Admin: 04/09/18 09:25 Dose: 1 tab Ondansetron HCl (Zofran Inj*) 4 mg IV Q4H PRN PRN Reason: NAUSEA/VOMITING Pantoprazole Sodium (Protonix Tab*) 40 mg PO BID [facility] Last Admin: 04/09/18 09:24 Dose: 40 mg Potassium Chloride (Klor Con Er Tab*) 20 meq PO DAILY [facility] Last Admin: 04/09/18 09:24 Dose: 20 meq Vital Signs - 8 hr 04/09/18 04/09/18 04/09/18 11:23 15:24 15:28 Temperature 98.5 F 98.6 F Pulse Rate 75 79 75 Respiratory 16 16 Rate Blood Pressure 108/49 89/40 89/36 (mmHg) O2 Sat by Pulse 100 99 Oximetry Oxygen Devices in Use Now: Nasal Cannula Appearance: NAD Eyes: No Scleral Icterus, PERRLA Ears/Nose/Mouth/Throat: NL Teeth, Lips, Gums, Clear Oropharnyx Neck: NL Appearance and Movements; NL JVP, Trachea Midline Respiratory: Symmetrical Chest Expansion and Respiratory Effort, Clear to Auscultation Cardiovascular: RRR Abdominal: NL Sounds; No Tenderness; No Distention, No Hepatosplenomegaly, - - + bs Lymphatic: No Cervical Adenopathy Extremities: No Edema Skin: No Rash or Ulcers Neurological: Alert and Oriented x 3 - Nutrition: Malnutrition Diagnosis/Plan Malnutrition Assessment by Registered Dietitian: Malnutrition Assessment Clinical Characteristics Chronic,Moderate Malnutrition Assessment: - 16-19% wt loss x past ~ 9 months Criteria - Moderate temporal and clavicle muscle wasting - < 75% estimated energy expenditure > 1 month Malnutrition Assessment: Will offer an oral nutritional supplement, such Interventions as Ensure Enlive, upon diet advancement as indicated. Malnutrition Assessment: Goals 1. Ultimately adequate intake to promote wt repletion and maintain hydration w/o additional undesired wt loss. Result Diagrams: 04/09/18 05:30 04/09/18 05:30 Microbiology and Other Data: Microbiology 04/04/18 14:45 Stool Occult Blood ([facility]) - Final Stool 04/04/18 14:25 Influenza Types A,B Antigen - Final Nasopharyngeal Specimen received for Influenza A/B Molecular testing Assess/Plan/Problems-Billing Assessment: 67 year old female admitted for fall due to dizziness she was found to be anemic with Hct of 19 associated with melena and NSAID's use for acute on chronic low back pain. S/p 4 units pRBC since admission, s/p Protonix drip awaiting s/p EGD on 04/05/18 with bleeding duodenal ulcer - Patient Problems (1) GI bleed due to NSAIDs Comment: - presented with melena and due to NSAID's - S/p 4 units pRBC's total this admission - protonix 40 mg bid - s/p EGD 04/05/18 which revealed: "Fresh blood in duodenum. 2 ulcers 0.8 in bulb prox cloop with oozing. Treated with bicap at 20W, epi 2cc each with good effect. Further distal brisk dieulafoy lesion distal c-loop active arterial squirt. 3 endoclips placed with good effect. Bicap at 20W to area. No further bleeding" - advanced to soft diet (2) Anemia Current Visit: Yes Status: Acute Comment: - secondary to upper GI bleed. - S/p 4 units pRBC's - protonix 40 mg bid - H/H stable (3) Back pain Comment: - off Morphine 2 mg IV prn - On tyelnol prn. out of bed ambulate bid - Educated patient to avoid any further NSAID at home (4) COPD exacerbation Comment: Pt to be provided with O2 at discharge. (5) Hypertension Comment: - SBP stable. Continue losartan and amlodipine. (6) DVT prophylaxis Comment: SCD given her GI bleed
[2018-04-10] MEDS: Acetaminophen TAB* 325 MG PO PRN ×4 (04:21→19:41)
[2018-04-10] MEDS: amLODIPine TAB* 5 MG PO SCH (08:50)
[2018-04-10] MEDS: Albuterol 2.5 MG/3 ML NEB.SOL* (0.083%) INH PRN ×3 (08:50→22:50)
[2018-04-10] MEDS: Losartan TAB* 25 MG PO SCH (08:51)
[2018-04-10] MEDS: Potassium Chlor TAB* 20 MEQ TAB.ER PO SCH (08:51)
[2018-04-10] MEDS: Multivitamins/Minerals TAB PO SCH (08:51)
[2018-04-10] MEDS: guaiFENesin ER TAB 600 MG PO PRN ×2 (08:51→19:41)
[2018-04-10] MEDS: Pantoprazole TAB * 40 MG TAB PO SCH ×2 (08:52→19:42)
[2018-04-10] MEDS: Atorvastatin* 40 MG TAB PO SCH (08:52)
[2018-04-10] MEDS: Magnesium Oxide TAB* 400 MG PO SCH ×2 (08:52→19:42)
[2018-04-10] MEDS: Docusate CAP* 100 MG PO SCH (15:32)
[2018-04-10] MEDS: Polyethylene Glycol 3350* 17 GM PACKET PO SCH (15:33)
--- NOTE | 2018-04-10 17:03 | PN ---
Subjective Date of Service: 04/10/18 Interval History: Feels weaker, LH when standing up and bloated Has not had a BM in many days No abdominal pain Feels disheartened by increasing weakness Past Medical History: Unchanged from Admission Objective Active Medications: Acetaminophen (Tylenol Tab*) 650 mg PO Q4H PRN PRN Reason: FEVER/PAIN Last Admin: 04/10/18 13:39 Dose: 650 mg Albuterol (Ventolin 2.5 Mg/3 Ml Neb.Mariam*) 2.5 mg INH Q6H PRN PRN Reason: SOB/WHEEZING Last Admin: 04/10/18 15:02 Dose: 2.5 mg Amlodipine Besylate (Norvasc Tab*) 10 mg PO DAILY [facility] Last Admin: 04/10/18 08:50 Dose: 10 mg Atorvastatin Calcium (Lipitor*) 40 mg PO DAILY [facility] Last Admin: 04/10/18 08:52 Dose: 40 mg Docusate Sodium (Colace Cap*) 200 mg PO DAILY [facility] Last Admin: 04/10/18 15:32 Dose: 200 mg Guaifenesin (Mucinex*) 600 mg PO BID PRN PRN Reason: CONGESTION Last Admin: 04/10/18 08:51 Dose: 600 mg Losartan Potassium (Cozaar Tab*) 50 mg PO DAILY [facility] Last Admin: 04/10/18 08:51 Dose: 50 mg Magnesium Oxide (Magox 400 Tab*) 400 mg PO BID [facility] Last Admin: 04/10/18 08:52 Dose: 400 mg Multivitamins/Minerals (Theragran/Minerals Tab*) 1 tab PO DAILY [facility] Last Admin: 04/10/18 08:51 Dose: 1 tab Ondansetron HCl (Zofran Inj*) 4 mg IV Q4H PRN PRN Reason: NAUSEA/VOMITING Pantoprazole Sodium (Protonix Tab*) 40 mg PO BID [facility] Last Admin: 04/10/18 08:52 Dose: 40 mg Polyethylene Glycol/Electrolytes (Miralax*) 17 gm PO DAILY [facility] Last Admin: 04/10/18 15:33 Dose: 17 gm Potassium Chloride (Klor Con Er Tab*) 20 meq PO DAILY [facility] Last Admin: 04/10/18 08:51 Dose: 20 meq Vital Signs - 8 hr 04/10/18 11:23 Temperature 98.3 F Pulse Rate 70 Respiratory 16 Rate Blood Pressure 91/40 (mmHg) O2 Sat by Pulse 99 Oximetry Oxygen Devices in Use Now: Nasal Cannula Appearance: NAD, older than stated age Eyes: No Scleral Icterus, PERRLA Ears/Nose/Mouth/Throat: NL Teeth, Lips, Gums, Clear Oropharnyx Neck: NL Appearance and Movements; NL JVP, Trachea Midline Respiratory: Symmetrical Chest Expansion and Respiratory Effort, Clear to Auscultation Cardiovascular: RRR, - - 2/6 early MARY Abdominal: No Hepatosplenomegaly, - - soft, NTTP, mild distention, +bs Lymphatic: No Cervical Adenopathy, No Axillary Adenopathy Extremities: No Edema Skin: No Rash or Ulcers Neurological: Alert and Oriented x 3 - Nutrition: Malnutrition Diagnosis/Plan Malnutrition Assessment by Registered Dietitian: Malnutrition Assessment Clinical Characteristics Chronic,Moderate Malnutrition Assessment: - 16-19% wt loss x past ~ 9 months Criteria - Moderate temporal and clavicle muscle wasting - < 75% estimated energy expenditure > 1 month Malnutrition Assessment: Will offer an oral nutritional supplement, such Interventions as Ensure Enlive, upon diet advancement as indicated. Malnutrition Assessment: Goals 1. Ultimately adequate intake to promote wt repletion and maintain hydration w/o additional undesired wt loss. Result Diagrams: 04/09/18 05:30 04/09/18 05:30 Microbiology and Other Data: Microbiology 04/04/18 14:45 Stool Occult Blood ([facility]) - Final Stool 04/04/18 14:25 Influenza Types A,B Antigen - Final Nasopharyngeal Specimen received for Influenza A/B Molecular testing Assess/Plan/Problems-Billing Assessment: 67 year old female admitted for fall due to dizziness she was found to be anemic with Hct of 19 associated with melena and NSAID's use for acute on chronic low back pain. S/p 4 units pRBC since admission, s/p Protonix drip and EGD on 04/05/18 with bleeding duodenal ulcer - Patient Problems (1) GI bleed due to NSAIDs Comment: - presented with melena and due to NSAID's - S/p 4 units pRBC's total this admission - protonix 40 mg bid - s/p EGD 04/05/18 which revealed: "Fresh blood in duodenum. 2 ulcers 0.8 in bulb prox cloop with oozing. Treated with bicap at 20W, epi 2cc each with good effect. Further distal brisk dieulafoy lesion distal c-loop active arterial squirt. 3 endoclips placed with good effect. Bicap at 20W to area. No further bleeding" - advanced to soft diet (2) Anemia Current Visit: Yes Status: Acute Comment: - secondary to upper GI bleed. - S/p 4 units pRBC's - protonix 40 mg bid - H/H stable (3) Back pain Comment: - off Morphine 2 mg IV prn - On tyelnol prn. out of bed ambulate bid - Educated patient to avoid any further NSAID at home (4) COPD exacerbation Comment: Pt to be provided with O2 at discharge. (5) Hypertension Comment: - SBP stable. Continue losartan and amlodipine. (6) DVT prophylaxis Comment: SCD given her GI bleed
[2018-04-11] MEDS: Acetaminophen TAB* 325 MG PO PRN ×3 (01:37→16:32)
[2018-04-11 06:03] LABS: ABS Basophils 0 10^3/ul (0-0.2); ABS Eosinophils 0 10^3/ul (0-0.6); ABS Lymphocytes 0.7 10^3/ul (1.0-4.8); ABS Monocytes 0.4 10^3/ul (0-0.8); ABS Neutrophils 5.5 10^3/ul (1.5-7.7); ABS Nucleated RBC 0 10^3/ul; Eosinophil % 0.4 %; Hematocrit 28 % (35-47); Hemoglobin 9.6 g/dl (12.0-16.0); Lymphocyte % 10.4 %; Mean Corpuscular HGB Conc 34 g/dl (31-36); Mean Corpuscular Hemoglobin 31 pg (27-31); Mean Corpuscular Volume 91 fL (80-97); Mean Platelet Volume 6.7 fL (7.4-10.4); Nucleated Red Blood Cells % 0; Platelet Count 326 10^3/ul (150-450); Red Blood Count 3.09 10^6/ul (4.00-5.40); Red Cell Distribution Width 15 % (10.5-15); White Blood Count 6.7 10^3/ul (3.5-10.8)
[2018-04-11 06:21] LABS: Calcium 8.4 mg/dL (8.6-10.3); EGFR African American 148.5 (>60); EGFR Non-African American 122.7 (>60); Potassium 3.9 mmol/L (3.5-5.0)
[2018-04-11] MEDS: amLODIPine TAB* 5 MG PO SCH (08:28)
[2018-04-11] MEDS: Magnesium Oxide TAB* 400 MG PO SCH ×2 (08:28→21:50)
[2018-04-11] MEDS: Losartan TAB* 25 MG PO SCH (08:28)
[2018-04-11] MEDS: Docusate CAP* 100 MG PO SCH (08:28)
[2018-04-11] MEDS: Atorvastatin* 40 MG TAB PO SCH (08:28)
[2018-04-11] MEDS: Pantoprazole TAB * 40 MG TAB PO SCH ×2 (08:28→21:50)
[2018-04-11] MEDS: Multivitamins/Minerals TAB PO SCH (08:28)
[2018-04-11] MEDS: Potassium Chlor TAB* 20 MEQ TAB.ER PO SCH (08:29)
[2018-04-11] MEDS: Polyethylene Glycol 3350* 17 GM PACKET PO SCH (08:29)
[2018-04-11] MEDS: guaiFENesin ER TAB 600 MG PO PRN ×2 (08:53→21:54)
[2018-04-11] MEDS ORDERED: Bisacodyl SUPP* 10 MG SUPP PR ONE (18:12)
--- NOTE | 2018-04-11 18:16 | PN ---
Subjective Date of Service: 04/11/18 Interval History: no BM with miralax yesterday +flatus +increased abdominal pain this AM. Mild nausea but no emesis \\ ABX with possible SBO but CT today more likely ileus Past Medical History: Unchanged from Admission Objective Active Medications: Acetaminophen (Tylenol Tab*) 650 mg PO Q4H PRN PRN Reason: FEVER/PAIN Last Admin: 04/11/18 16:32 Dose: 650 mg Albuterol (Ventolin 2.5 Mg/3 Ml Neb.Mariam*) 2.5 mg INH Q6H PRN PRN Reason: SOB/WHEEZING Last Admin: 04/10/18 22:50 Dose: 2.5 mg Amlodipine Besylate (Norvasc Tab*) 10 mg PO DAILY [facility] Last Admin: 04/11/18 08:28 Dose: 10 mg Atorvastatin Calcium (Lipitor*) 40 mg PO DAILY [facility] Last Admin: 04/11/18 08:28 Dose: 40 mg Docusate Sodium (Colace Cap*) 200 mg PO DAILY [facility] Last Admin: 04/11/18 08:28 Dose: 200 mg Guaifenesin (Mucinex*) 600 mg PO BID PRN PRN Reason: CONGESTION Last Admin: 04/11/18 08:53 Dose: 600 mg Losartan Potassium (Cozaar Tab*) 50 mg PO DAILY [facility] Last Admin: 04/11/18 08:28 Dose: 50 mg Magnesium Oxide (Magox 400 Tab*) 400 mg PO BID [facility] Last Admin: 04/11/18 08:28 Dose: 400 mg Multivitamins/Minerals (Theragran/Minerals Tab*) 1 tab PO DAILY [facility] Last Admin: 04/11/18 08:28 Dose: 1 tab Ondansetron HCl (Zofran Inj*) 4 mg IV Q4H PRN PRN Reason: NAUSEA/VOMITING Pantoprazole Sodium (Protonix Tab*) 40 mg PO BID [facility] Last Admin: 04/11/18 08:28 Dose: 40 mg Polyethylene Glycol/Electrolytes (Miralax*) 17 gm PO DAILY [facility] Last Admin: 04/11/18 08:29 Dose: 17 gm Potassium Chloride (Klor Con Er Tab*) 20 meq PO DAILY [facility] Last Admin: 04/11/18 08:29 Dose: 20 meq Vital Signs - 8 hr 04/11/18 04/11/18 11:25 15:41 Temperature 98.0 F Pulse Rate 78 68 Respiratory 16 16 Rate Blood Pressure 119/50 100/62 (mmHg) O2 Sat by Pulse 99 Oximetry Oxygen Devices in Use Now: Nasal Cannula Appearance: NAD, eating a sandwich this evening Eyes: No Scleral Icterus, PERRLA Ears/Nose/Mouth/Throat: NL Teeth, Lips, Gums, Clear Oropharnyx Neck: NL Appearance and Movements; NL JVP, Trachea Midline Respiratory: Symmetrical Chest Expansion and Respiratory Effort, Clear to Auscultation Cardiovascular: - - 2/5 MARY Abdominal: NL Sounds; No Tenderness; No Distention, No Hepatosplenomegaly, - - very active bowel sounds Lymphatic: No Cervical Adenopathy, No Axillary Adenopathy Extremities: No Edema Skin: No Rash or Ulcers Neurological: Alert and Oriented x 3 - Nutrition: Malnutrition Diagnosis/Plan Malnutrition Assessment by Registered Dietitian: Malnutrition Assessment Clinical Characteristics Chronic,Moderate Malnutrition Assessment: - 16-19% wt loss x past ~ 9 months Criteria - Moderate temporal and clavicle muscle wasting - < 75% estimated energy expenditure > 1 month Malnutrition Assessment: Will offer an oral nutritional supplement, such Interventions as Ensure Enlive, upon diet advancement as indicated. Malnutrition Assessment: Goals 1. Ultimately adequate intake to promote wt repletion and maintain hydration w/o additional undesired wt loss. Result Diagrams: 04/11/18 05:42 04/11/18 05:42 Microbiology and Other Data: Microbiology 04/04/18 14:45 Stool Occult Blood ([facility]) - Final Stool 04/04/18 14:25 Influenza Types A,B Antigen - Final Nasopharyngeal Specimen received for Influenza A/B Molecular testing Assess/Plan/Problems-Billing Assessment: 67 year old female admitted for fall due to dizziness she was found to be anemic with Hct of 19 associated with melena and NSAID's use for acute on chronic low back pain. S/p 4 units pRBC since admission, s/p Protonix drip and EGD on 04/05/18 with bleeding duodenal ulcer - Patient Problems (1) Ileus Comment: ambulate CT with large amount of stool in rectum no BM with enema this evening. Will try suppository next. May need disimpaction if other modalities fail (2) GI bleed due to NSAIDs Comment: - presented with melena and due to NSAID's - S/p 4 units pRBC's total this admission - protonix 40 mg bid - s/p EGD 04/05/18 which revealed: "Fresh blood in duodenum. 2 ulcers 0.8 in bulb prox cloop with oozing. Treated with bicap at 20W, epi 2cc each with good effect. Further distal brisk dieulafoy lesion distal c-loop active arterial squirt. 3 endoclips placed with good effect. Bicap at 20W to area. No further bleeding" - unrestricted diet (3) Anemia Current Visit: Yes Status: Acute Comment: - secondary to upper GI bleed. - S/p 4 units pRBC's - protonix 40 mg bid - H/H stable (4) Back pain Comment: - off Morphine 2 mg IV prn - On tyelnol prn. out of bed ambulate bid - Educated patient to avoid any further NSAID at home (5) COPD exacerbation Comment: Pt to be provided with O2 at discharge. (6) Hypertension Comment: - SBP stable. Continue losartan and amlodipine. (7) DVT prophylaxis Comment: SCD given her GI bleed Status and Disposition: Accepted to [facility] for [facility] but facility declined today 2/2 AM ABX with possible SBO.
[2018-04-11] MEDS: Albuterol 2.5 MG/3 ML NEB.SOL* (0.083%) INH PRN (22:15)
[2018-04-12] MEDS: Acetaminophen TAB* 325 MG PO PRN ×3 (02:51→13:26)
[2018-04-12] MEDS ORDERED: Potassium Chloride LIQUID* 20 MEQ PACKET PO SCH (09:30)
[2018-04-12] MEDS: Atorvastatin* 40 MG TAB PO SCH (09:42)
[2018-04-12] MEDS: Polyethylene Glycol 3350* 17 GM PACKET PO SCH (09:42)
[2018-04-12] MEDS: Pantoprazole TAB * 40 MG TAB PO SCH (09:42)
[2018-04-12] MEDS: Losartan TAB* 25 MG PO SCH (09:42)
[2018-04-12] MEDS: amLODIPine TAB* 5 MG PO SCH (09:42)
[2018-04-12] MEDS: Docusate CAP* 100 MG PO SCH (09:42)
[2018-04-12] MEDS: Magnesium Oxide TAB* 400 MG PO SCH (09:42)
[2018-04-12] MEDS: Multivitamins/Minerals TAB PO SCH (09:43)
[2018-04-12] MEDS: Potassium Chlor TAB* 20 MEQ TAB.ER PO SCH (09:48)
[2018-04-12] MEDS: guaiFENesin ER TAB 600 MG PO PRN (09:52)
[2018-04-12] MEDS: Albuterol 2.5 MG/3 ML NEB.SOL* (0.083%) INH PRN (10:08)
[2018-04-12 13:26] VITALS: BP 127/57
--- NOTE | 2018-04-12 14:10 | DS ---
CC: Dr. Bhat; Dr. Mckay; Dr. Gamez* DISCHARGE SUMMARY: DATE OF ADMISSION: 04/04/18 DATE OF DISCHARGE: 04/12/18 PRIMARY CARE PROVIDER: Dr. Bhat. DISPOSITION: The patient is being discharged to [facility] short- term rehabilitation facility. DISCHARGE DIAGNOSES: 1. Acute gastrointestinal bleed due to the duodenal ulcers in patient with history of nonsteroidal anti-inflammatory medications. 2. Acute anemia due to gastrointestinal hemorrhage as above, status post 3 units of packed red blood cells transfusion during the hospital stay. SECONDARY DIAGNOSES: 1. Muscular deconditioning due to acute hospitalization and a fall prior to the patient's admission. 2. History of hypertension. 3. Hyperlipidemia. 4. History of chronic obstructive pulmonary disease. 5. History of remote gastric ulcers in the past. 6. Transient ileus that resolved by the time of discharge. MEDICATIONS AT DISCHARGE: Include: 1. Albuterol inhaler on a p.r.n. basis. 2. Norvasc 10 mg daily. 3. Vitamin C 500 mg daily. 4. Guaifenesin 600 mg b.i.d. p.r.n. 5. Multivitamin 1 tablet daily. 6. Crestor 20 mg daily. 7. Ultram 50 mg every 8 hours p.r.n. 8. Albuterol nebulizer on a p.r.n. basis. 9. Colace 200 mg daily. 10. Magnesium oxide 400 mg b.i.d. 11. Protonix 40 mg b.i.d. 12. MiraLAX 17 g daily. LABORATORY DATA AND STUDIES PERFORMED DURING THE HOSPITALIZATION: Included: On 04/11/18, sodium of 135, potassium 3.9, chloride 102, carbon dioxide 30, BUN 6, creatinine 0.5. CBC: On 04/11/18, white blood cell count was 6.7, hemoglobin 9.6, hematocrit 28, and platelets 326. Urine dipstick was negative on admission. CT of the abdomen and pelvis performed on 04/11/18, impression: "Small bowel ileus strongly favored over partial small bowel obstruction. Large volume stool present throughout the colon with moderately severe rectal distention with stool. Small volume of nonspecific pelvic ascites. Multiple osteoporotic compression fractures noted including L3, L1, T12, T11 and T10. The fracture involving the superior endplate of L3 vertebral body may be acute or subacute given discrete cortical disruption and trabecular impaction. No paravertebral hematoma evident to confirm acuity." Cervical spine CT obtained on 04/04/18; impression: "Osteopenia. Mild degenerative disk disease and osteoarthritis. Atherosclerosis. No acute or stress injury to cervical spine. Incidentally noted is a 0.3 cm nodule of the right lung apex and recommendations for the followup and management of the incidentally identified pulmonary nodule, less than 6 mm in size in a patient without history of malignancy include no followup for a low risk patient or optional followup CT in 12 months for a high risk patient." Brain CT obtained on 04/04/18; impression: "Status post REVIEW COORDINATOR shunting. With slit - like ventricles decreased in size compared to 01/31/07." HOSPITALIZATION COURSE: Mesha Diaz is a 67-year-old female with history of COPD who presented to the hospital after a near syncope with dizziness and lightheadedness. She fell and she hit her head prior to admission. She had been taking ibuprofen on a p.r.n. basis prior to her admission. She was noted to be significantly anemic and her stool was heme positive. Her hemoglobin at the time of discharge was 6.8. The patient was seen by the gastroenterology framing consultant, Dr. Gamez, who performed an upper endoscopy on 04/05/18 which showed actively bleeding arterial Dieulafoy lesion with 3 Endoclips placed. There were also 2 active oozing laceration in the posterior bulb of the proximal C-loop of duodenum. The patient was transferred post procedure to the intensive care unit for monitoring. She did very well. Overall she required 3 units of packed red blood cells transfusion for acute anemia. Prior to the patient's discharge to short-term rehabilitation due to overall deconditioning, she was noted to have no bowel movement and a CT of abdomen and pelvis showed possible early ileus. The patient was placed on laxatives and for the past 24 hours she has had multiple small hard bowel movements. A confirmation x-ray to confirm the patient's ileus had resolved is still pending at the time of dictation. Throughout the patient's hospital stay, the patient was transitioned from IV Protonix drip to Protonix b.i.d. with good results. At this point, the patient is to continue Protonix b.i.d. The patient has had problems with back pain and she was noted to have a lumbar spine compression fracture that may be acute or subacute of the L3 vertebral body. She underwent Physical Therapy, Occupational Therapy evaluation and she was noted to be a good candidate for short-term rehabilitation. She is going to be discharge to [facility] short-term rehabilitation likely today. CONDITION ON DISCHARGE: Stable. The patient is hemodynamically stable. For further exam at discharge, please see daily progress notes. DIET: Patient's diet at discharge is regular. FOLLOWUP: The patient is recommended to follow up with the physician at the correction facility in approximately 2 to 3 days. Please note that this is a short summary of the patient's hospital stay. Please refer to further medical records for details. TIME SPENT: Approximately 40 minutes was spent on the patient's discharge. ADDENDUM Please note that the patient has diagnosis of COPD that had been oxygen dependent for the past several months. She had been using 2 L of oxygen continuously via nasal cannula and that is to be continued at correction discharge. PHYSICAL EXAMINATION AT THE TIME OF DISCHARGE: Blood pressure of 137/57, heart rate of 83 and regular, respiratory rate 16, oxygen saturation 10'';;0% on 2 L of oxygen nasal cannula, temperature 98.6. General: The patient is a pleasant 67- year-old female who is in no acute distress. Awake and oriented x3. HEENT : Head: Atraumatic, normocephalic. Eyes: Pupils are equal, round, and reactive to light and accommodation. Oropharynx clear. Mucosa moist. Neck: Supple. No JVD. No bruits bilaterally. Cardiovascular: Regular rate and rhythm with 3/6 systolic ejection murmur noted on auscultation of right upper sternal border. Respiratory: Coarse breath sounds at bilateral bases, otherwise clear. Abdomen: Tympanic to percussion, distended, soft and nontender. Bowel sounds present in all 4 quadrants. Extremities: There is no edema. Pulses are +2 bilaterally. No clubbing or cyanosis. On neuro evaluation, speech clear. Cranial nerves II through XII are grossly intact. Motor strength is 5/5 bilaterally. DIAGNOSTIC STUDIES/LAB DATA: The patient's abdomen x-ray obtained today, impression: "Moderately distended loops of small bowel, a similar distribution to that present on 04/11/18 with no free air." Please note that the patient has had multiple small bowel movements. She intermittently would have abdominal cramping that resolved after a bowel movement. She had been tolerating her food without any problems. At this point , she does not appear to be in small bowel obstruction/ileus. She is going to be discharged to short-term rehabilitation with multiple laxatives on board to be as needed and scheduled as above mentioned for the patient's obstipation. Please note that this is a short summary of the patient's hospitalization. Please refer to further medical records for details. [id number]/[facility] #: [id number]/[facility] #: [id number] MTDD
--- NOTE | 2018-04-12 21:09 | DS ---
DISCHARGE SUMMARY: DATE OF ADMISSION: 04/04/18 DATE OF DISCHARGE: 04/12/18 ADDENDUM: Please note that the patient has diagnosis of COPD that had been oxygen dependent for the past several months. She had been using 2 L of oxygen continuously via nasal cannula and that is to be continued at group home discharge. PHYSICAL EXAMINATION AT THE TIME OF DISCHARGE: Blood pressure of 137/57, heart rate of 83 and regular, respiratory rate 16, oxygen saturation 10'';;0% on 2 L of oxygen nasal cannula, temperature 98.6. General: The patient is a pleasant 67- year-old female who is in no acute distress. Awake and oriented x3. HEENT : Head: Atraumatic, normocephalic. Eyes: Pupils are equal, round, and reactive to light and accommodation. Oropharynx clear. Mucosa moist. Neck: Supple. No JVD. No bruits bilaterally. Cardiovascular: Regular rate and rhythm with 3/6 systolic ejection murmur noted on auscultation of right upper sternal border. Respiratory: Coarse breath sounds at bilateral bases, otherwise clear. Abdomen: Tympanic to percussion, distended, soft and nontender. Bowel sounds present in all 4 quadrants. Extremities: There is no edema. Pulses are +2 bilaterally. No clubbing or cyanosis. On neuro evaluation, speech clear. Cranial nerves II through XII are grossly intact. Motor strength is 5/5 bilaterally. DIAGNOSTIC STUDIES/LAB DATA: The patient's abdomen x-ray obtained today, impression: "Moderately distended loops of small bowel, a similar distribution to that present on 04/11/18 with no free air." Please note that the patient has had multiple small bowel movements. She intermittently would have abdominal cramping that resolved after a bowel movement. She had been tolerating her food without any problems. At this point , she does not appear to be in small bowel obstruction/ileus. She is going to be discharged to short-term rehabilitation with multiple laxatives on board to be as needed and scheduled as above mentioned for the patient's obstipation. Please note that this is a short summary of the patient's hospitalization. Please refer to further medical records for details. [id number]/[facility] #: [id number] MTDD
[2018-04-13 16:06] LABS: Stool Helicobacter pylori Ag Negative (Negative)
== END 2018-04-12 14:30 | DRG 378 ==
LOC: ED 13:46 → MED 17:13 → ICU 04-05 19:05 → SSU 04-07 18:25
PROVIDERS: ADMIT Internal Medicine; ATTEND Internal Medicine
PROC: 30233N1 Transfusion of Nonautologous Red Blood Cells into Peripheral Vein, Percutaneous Approach (ICD-10-PCS; principal; 2018-04-04)
PROC: 3E0G8GC Introduction of Other Therapeutic Substance into Upper GI, Via Natural or Artificial Opening Endoscopic (ICD-10-PCS; 2018-04-05)
PROC: 0W3P8ZZ Control Bleeding in Gastrointestinal Tract, Via Natural or Artificial Opening Endoscopic (ICD-10-PCS; 2018-04-05)
DX: K26.4 Chronic or unspecified duodenal ulcer with hemorrhage (principal); D62 Acute posthemorrhagic anemia; M48.55XA Collapsed vertebra, not elsewhere classified, thoracolumbar region, initial encounter for fracture; J44.1 Chronic obstructive pulmonary disease with (acute) exacerbation; K56.7 Ileus, unspecified; I10 Essential (primary) hypertension; W19.XXXA Unspecified fall, initial encounter; S00.93XA Contusion of unspecified part of head, initial encounter; M85.88 Other specified disorders of bone density and structure, other site; M50.30 Other cervical disc degeneration, unspecified cervical region; R91.1 Solitary pulmonary nodule; R13.10 Dysphagia, unspecified; T39.395A Adverse effect of other nonsteroidal anti-inflammatory drugs [NSAID], initial encounter; G89.29 Other chronic pain; E78.5 Hyperlipidemia, unspecified; Z90.710 Acquired absence of both cervix and uterus; Z82.49 Family history of ischemic heart disease and other diseases of the circulatory system; Z88.0 Allergy status to penicillin; Z80.8 Family history of malignant neoplasm of other organs or systems; Z83.3 Family history of diabetes mellitus; Z87.891 Personal history of nicotine dependence; Y92.9 Unspecified place or not applicable; Z88.1 Allergy status to other antibiotic agents
CPT/HCPCS: 36415; 70450; 71046; 72125; 74018; 74019; 74176; 80048; 80053; 82272; 82550; 83605; 83735; 83880; 84100; 84484; 85014; 85018; 85025; 85730; 86140; 86850; 86900; 86901; 86922; 87338; 87641; 93005; 94640; 99156; 99157; 99284; A9270-GY; G8978-GP-CL; G8979-GP-CJ; J0171; J2250; J2270; J3010; P9040

== ENCOUNTER → 2018-06-22 09:27 | Day surgery (SDC) | payer MEDICARE, BC ==
[~2018-06-22 09:27] MED LIST: Buffered Lidocaine 1% SYRIN* 1 ML/SYRINGE INTRADERM ONE; Lactated Ringers 1000 ML Bag* 1,000 ML IV SCH; Levalbuterol 0.63MG/3ML NEB* UNIT OF USE INH ONE; Midazolam* 1 MG/ML 5 ML VIAL (5 MG) ONE; Propofol* 10 MG/ML 20 ML BTL ONE; fentaNYL* 50 MCG/ML 2 ML VIAL (100 MCG VIAL) ONE
[2018-06-22 12:05] VITALS: BP 146/71
--- NOTE | 2018-06-22 21:14 | PRO ---
CC: Dr. Dennys Bhat; Dr. Odell * DATE OF PROCEDURE: 06/22/18 PRIMARY B AND B GANG WORKER: Dr. Odell. INDICATION FOR PROCEDURE: History of duodenal ulcers with Dieulafoy lesion. PROCEDURE PERFORMED: Complete esophagogastroduodenoscopy with Endoclip placement. MEDICATIONS GIVEN: Please see anesthesia record. DESCRIPTION OF PROCEDURE: After the EGD procedure including the risks, benefits , and alternatives with the risks not limited to perforation, surgery, missed lesions, and/or were explained to the patient, written informed consent was obtained, IV medication was given, and a bite-block was placed between the teeth. The adult Olympus gastroscope was then inserted into the patient's oropharynx, into the tubular esophagus. 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 This was biopsied. The esophagus was otherwise unremarkable. The scope was then advanced through the lower esophageal sphincter into the stomach. There was mild antral-predominant gastritis. This was biopsied for MAY testing. On retroflexion, the views were grossly normal. The scope was then advanced through a widely patent pylorus into the duodenal bulb, C-loop, and distal duodenum. The previous ulcerations had healed entirely. There was some scant oozing along 1 fold after the scope had brushed by. Given her history of Dieulafoy lesion, I did place an Endoclip over this area with good effect. No further bleeding was noted. The scope was then removed from the patient. She tolerated the procedure well. She returned to the recovery room in stable condition. IMPRESSION: 1. Complete esophagogastroduodenoscopy with biopsies. 2. Healed duodenal ulcers. 3. Gastritis. 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 5. Scant oozing in the small bowel, status post Endoclip placement with resolution. RECOMMENDATIONS: She had been on aspirin in the past. I think that was the etiology of her ulcerations. Unfortunately, a Dieulafoy lesion can occur randomly; however, an NSAID will be more likely to promote tissue erosion. I think that the best option in terms of her future from a cardiac standpoint would be to do Plavix alone without any NSAIDs including aspirin. [id number]/[facility] #: [id number] [facility]
== END | disposition home or self-care (01) ==
LOC: OR 09:27
PROVIDERS: ATTEND Internal Medicine Gastroenterology
DX: K26.4 Chronic or unspecified duodenal ulcer with hemorrhage (principal); D64.9 Anemia, unspecified; K29.70 Gastritis, unspecified, without bleeding; K21.9 Gastro-esophageal reflux disease without esophagitis; I10 Essential (primary) hypertension; R01.1 Cardiac murmur, unspecified; J44.9 Chronic obstructive pulmonary disease, unspecified; Z99.81 Dependence on supplemental oxygen
CPT/HCPCS: 87077; 88305; 88342; J2250; J2704; J3010

== ENCOUNTER 2022-08-10 16:03 | Inpatient (IN) ==
[2022-08-10] MEDS ORDERED: Lactated Ringers 1000 ml BAG 1,000 ML IV ONE (17:15)
[2022-08-10 18:54] LABS: ABS Lymphocytes 0.5 10^3/uL (1.0-4.8); ABS Monocytes 0.6 10^3/uL (0.0-0.9); ABS Neutrophils 5.8 10^3/uL (1.5-7.6); ABS Nucleated RBC 0.01 10^3/ul; Eosinophil % 0.2 %; Hematocrit 38.3 % (35-45); Hemoglobin 13.6 g/dL (11.5-14.3); Mean Corpuscular Hemoglobin 33.3 pg (27-33); Mean Corpuscular Hgb Conc 35.5 g/dL (31-36); Mean Platelet Volume 6.2 fL (7.5-11.2); Nucleated Red Blood Cells % 0.1 /100 WBC (0.0-0.4); Platelet Count 424 10^3/uL (150-450); Red Blood Count 4.08 10^6/uL (3.63-4.92); Red Cell Distribution Width 12.8 % (12-17); White Blood Count 6.9 10^3/uL (3.8-11.8)
[2022-08-10 19:40] LABS: Alcohol, S < 13 mg/dL (<13)
[2022-08-10 19:42] LABS: ALT 17 U/L (7-52); AST 19 U/L (13-39); Albumin 4.4 g/dL (3.2-5.2); Albumin/Globulin Ratio 1.8 (1-3); Alkaline Phosphatase 127 U/L (35-149); Anion Gap 7 mmol/L (2-16); Blood Urea Nitrogen 13 mg/dL (6-24); CO2 Carbon Dioxide 32 mmol/L (22-32); Calcium 9.7 mg/dL (8.6-10.3); Chloride 86 mmol/L (101-111); Globulin 2.4 g/dL (2-4); Glucose 72 mg/dL (70-100); Potassium 4.4 mmol/L (3.5-5.0); Sodium 125 mmol/L (135-145); Total Protein 6.8 g/dL (6.4-8.9); eGFR CKD-EPI 99.6 (>60)
[2022-08-10 22:33] LABS: Urine Appearance Cloudy; Urine Bilirubin Negative (Negative); Urine Blood Negative (Negative); Urine Color Yellow; Urine Glucose 1+(50 mg/dL) (Negative); Urine Ketones Trace (Negative); Urine Nitrite Negative (Negative); Urine Protein 2+(100 mg/dL) (Negative); Urine Specific Gravity 1.023 (1.002-1.030); Urine Urobilinogen Negative (Negative)
[2022-08-10 22:39] LABS: Urine Bacteria 1+ (Absent); Urine Red Blood Cell Absent (Absent); Urine Squamous Epithelial Cell Present (Absent); Urine White Blood Cell Trace(0-5/hpf) (Absent); Urine Yeast Present (Absent)
[2022-08-11] MEDS ORDERED: Magnesium Hydroxide LIQ 30 ML UDC PO PRN (00:39)
[2022-08-11] MEDS ORDERED: Senna TAB 8.6 mg TAB PO PRN (00:39)
[2022-08-11] MEDS ORDERED: Polyethylene Glycol 3350 17 GM PACKET PO PRN (00:39)
[2022-08-11] MEDS ORDERED: Enoxaparin 40 MG/0.4 ML SYR SUBCUT SCH (01:00)
[2022-08-11 05:06] LABS: Osmolality Serum 263 mOsm/kg (275-295)
[2022-08-11 07:43] LABS: Calcium 9.2 mg/dL (8.6-10.3); Potassium 4.4 mmol/L (3.5-5.0)
[2022-08-11 07:49] LABS: Creatinine, Serum 0.49 mg/dL (0.51-0.95); eGFR CKD-EPI 100.1 (>60)
[2022-08-11] MEDS ORDERED: Lactated Ringers 1000 ml BAG 1,000 ML IV SCH (08:00)
[2022-08-11] MEDS: Magnesium Hydroxide LIQ 30 ML UDC PO SCH ×2 (08:10→21:57)
[2022-08-11] MEDS ORDERED: SMOG Enema (MgOH-NS-Gly-MinO) 330 ML ENEMA PR ONE (10:39)
[2022-08-11 15:32] LABS: Calcium 9.1 mg/dL (8.6-10.3); Potassium 4.4 mmol/L (3.5-5.0)
[2022-08-11 15:38] LABS: Creatinine, Serum 0.46 mg/dL (0.51-0.95); eGFR CKD-EPI 101.6 (>60)
[2022-08-11 16:33] LABS: TSH Ultra Thyroid Stim Horm 1.42 mcIU/mL (0.34-5.60)
[2022-08-11 16:35] LABS: Free T4 1.15 ng/dL (0.61-1.12)
[2022-08-11] MEDS: Ure-Na 15 GM POWD.PACK PO SCH (17:51)
[2022-08-11 19:56] LABS: Urine Osmo 447 mOsm/kg (150-1150)
[2022-08-11] MEDS: Enoxaparin 40 MG/0.4 ML SYR SUBCUT SCH (21:55)
[2022-08-12 05:58] LABS: ABS Lymphocytes 0.6 10^3/uL (1.0-4.8); ABS Monocytes 0.9 10^3/uL (0.0-0.9); ABS Neutrophils 8.3 10^3/uL (1.5-7.6); Hematocrit 28.2 % (35-45); Hemoglobin 10.3 g/dL (11.5-14.3); Lymphocyte % 6.5 %; Mean Corpuscular Hemoglobin 34.2 pg (27-33); Mean Corpuscular Hgb Conc 36.5 g/dL (31-36); Mean Corpuscular Volume 93.9 fL (80-97); Mean Platelet Volume 6.5 fL (7.5-11.2); Platelet Count 324 10^3/uL (150-450); White Blood Count 9.8 10^3/uL (3.8-11.8)
[2022-08-12 06:29] LABS: Calcium 8.6 mg/dL (8.6-10.3); Creatinine, Serum 0.4 mg/dL (0.51-0.95); Magnesium 1.8 mg/dL (1.9-2.7); Potassium 4.5 mmol/L (3.5-5.0); eGFR CKD-EPI 105.1 (>60)
[2022-08-12] MEDS: Ure-Na 15 GM POWD.PACK PO SCH (08:24)
[2022-08-12] MEDS: Magnesium Hydroxide LIQ 30 ML UDC PO SCH ×2 (08:24→19:26)
[2022-08-12] MEDS: Enoxaparin 40 MG/0.4 ML SYR SUBCUT SCH (19:44)
[2022-08-13] MEDS ORDERED: Iohexol 350 (CONTRAST) 500 ML MDV IV ONE (01:15)
[2022-08-13 06:48] LABS: ABS Lymphocytes 0.1 10^3/uL (1.0-4.8); ABS Monocytes 0.1 10^3/uL (0.0-0.9); ABS Neutrophils 5.4 10^3/uL (1.5-7.6); Hematocrit 32.1 % (35-45); Hemoglobin 11.3 g/dL (11.5-14.3); Lymphocyte % 2.2 %; Mean Corpuscular Hemoglobin 33.6 pg (27-33); Mean Corpuscular Hgb Conc 35.2 g/dL (31-36); Mean Corpuscular Volume 95.7 fL (80-97); Mean Platelet Volume 6.6 fL (7.5-11.2); Nucleated Red Blood Cells % 0.1 /100 WBC (0.0-0.4); Platelet Count 358 10^3/uL (150-450); Red Blood Count 3.36 10^6/uL (3.63-4.92); Red Cell Distribution Width 12.7 % (12-17); White Blood Count 5.7 10^3/uL (3.8-11.8)
[2022-08-13 07:04] LABS: Calcium 9.2 mg/dL (8.6-10.3); Creatinine, Serum 0.48 mg/dL (0.51-0.95); Magnesium 2.1 mg/dL (1.9-2.7); Potassium 4.6 mmol/L (3.5-5.0); eGFR CKD-EPI 100.6 (>60)
[2022-08-13] MEDS: Ure-Na 15 GM POWD.PACK PO SCH (07:14)
[2022-08-13] MEDS: Magnesium Hydroxide LIQ 30 ML UDC PO SCH (07:15)
[2022-08-13] MEDS ORDERED: Albuterol/Ipratropium NEB.SOL (2.5/0.5 MG) 3 ML NEB.SOLN ONE (13:20)
[2022-08-13] MEDS: Albuterol/Ipratropium NEB.SOL (2.5/0.5 MG) 3 ML NEB.SOLN INH SCH ×2 (13:25→19:08)
[2022-08-13] MEDS: Enoxaparin 40 MG/0.4 ML SYR SUBCUT SCH (19:31)
[2022-08-14] MEDS: Albuterol/Ipratropium NEB.SOL (2.5/0.5 MG) 3 ML NEB.SOLN INH SCH ×3 (07:06→19:19)
[2022-08-14 07:13] LABS: Calcium 9.1 mg/dL (8.6-10.3); Creatinine, Serum 0.5 mg/dL (0.51-0.95); HDL Cholesterol 77.3 mg/dL; Potassium 4.5 mmol/L (3.5-5.0); eGFR CKD-EPI 99.6 (>60)
[2022-08-14] MEDS ORDERED: Benzocaine/Butamben/Tetracain (CETACAINE - SINGLE USE) 5 gm TOPICAL ONE (07:59)
[2022-08-14] MEDS ORDERED: Prochlorperazine 5 mg/ml 2 ml VIAL (10 mg) IV PRN (08:24)
[2022-08-14] MEDS ORDERED: Naloxone 0.4 mg VIAL 0.4 mg/ml 1 ml VIAL IV PRN (08:24)
[2022-08-14] MEDS ORDERED: fentaNYL 100 mcg/2 ml 50 MCG/ML VIAL IV PRN (08:24)
[2022-08-14] MEDS ORDERED: Ondansetron 4 mg VIAL 2 MG/ML 2 ml VIAL ONE (08:47)
[2022-08-14] MEDS ORDERED: Metoclopramide 5 MG/ML VIAL (10 mg) ONE (08:47)
[2022-08-14] MEDS ORDERED: Propofol 10 MG/ML 20 ML BTL ONE (08:47)
[2022-08-14] MEDS ORDERED: Dexamethasone IV 4 MG/ML VIAL 1 ml VIAL ONE (08:47)
[2022-08-14] MEDS ORDERED: fentaNYL 100 mcg/2 ml 50 MCG/ML VIAL ONE (08:47)
[2022-08-14] MEDS ORDERED: Rocuronium 50 mg VIAL 10 mg/ml 5 ml VIAL (50 mg) ONE (08:47)
[2022-08-14] MEDS ORDERED: Phenylephrine IV 10 MG/ML 1 ml VIAL ONE (09:00)
[2022-08-14] MEDS ORDERED: Acetylcysteine ORAL SOL 200 mg/ml 30 ml VIAL INH ONE (09:00)
[2022-08-14] MEDS ORDERED: Phenylephrine 40 mcg/mL 10mL (400mcg) SYRINGE ONE (09:01)
[2022-08-14] MEDS: Enoxaparin 40 MG/0.4 ML SYR SUBCUT SCH (19:33)
[2022-08-15 06:16] LABS: Calcium 9.2 mg/dL (8.6-10.3); Creatinine, Serum 0.43 mg/dL (0.51-0.95); Potassium 4.4 mmol/L (3.5-5.0); eGFR CKD-EPI 103.3 (>60)
[2022-08-15] MEDS: Albuterol/Ipratropium NEB.SOL (2.5/0.5 MG) 3 ML NEB.SOLN INH SCH ×3 (07:10→19:07)
[2022-08-15] MEDS: Acetaminophen IV 1 GM/100ML 600 MG/60 ML BAG IV PRN (22:31)
[2022-08-15] MEDS: Magnesium Hydroxide LIQ 30 ML UDC PO SCH (22:35)
[2022-08-15] MEDS: Enoxaparin 40 MG/0.4 ML SYR SUBCUT SCH (23:49)
[2022-08-16] MEDS: Acetaminophen IV 1 GM/100ML 600 MG/60 ML BAG IV PRN ×2 (06:27→15:54)
[2022-08-16] MEDS: Albuterol/Ipratropium NEB.SOL (2.5/0.5 MG) 3 ML NEB.SOLN INH SCH ×3 (07:17→19:04)
[2022-08-16 08:16] LABS: ABS Lymphocytes 0.5 10^3/uL (1.0-4.8); ABS Monocytes 0.4 10^3/uL (0.0-0.9); ABS Neutrophils 3.5 10^3/uL (1.5-7.6); Eosinophil % 0.3 %; Hematocrit 30.8 % (35-45); Hemoglobin 10.7 g/dL (11.5-14.3); Lymphocyte % 10.2 %; Mean Corpuscular Hemoglobin 33.7 pg (27-33); Mean Corpuscular Hgb Conc 34.8 g/dL (31-36); Mean Corpuscular Volume 96.8 fL (80-97); Mean Platelet Volume 6.5 fL (7.5-11.2); Nucleated Red Blood Cells % 0.1 /100 WBC (0.0-0.4); Platelet Count 307 10^3/uL (150-450); Red Blood Count 3.18 10^6/uL (3.63-4.92); Red Cell Distribution Width 13.1 % (12-17); White Blood Count 4.4 10^3/uL (3.8-11.8)
[2022-08-16 08:32] LABS: Calcium 8.9 mg/dL (8.6-10.3); Creatinine, Serum 0.41 mg/dL (0.51-0.95); Magnesium 1.9 mg/dL (1.9-2.7); Potassium 3.9 mmol/L (3.5-5.0); eGFR CKD-EPI 104.5 (>60)
[2022-08-16] MEDS: D5LR 1000 ml BAG 1,000 ML IV SCH ×2 (09:01→22:21)
[2022-08-16] MEDS: Pantoprazole VIAL 40 MG VIAL IV SCH (09:04)
[2022-08-16] MEDS: Magnesium Hydroxide LIQ 30 ML UDC PO SCH ×2 (09:04→21:24)
[2022-08-16] MEDS ORDERED: Albuterol/Ipratropium NEB.SOL (2.5/0.5 MG) 3 ML NEB.SOLN INH PRN (18:28)
[2022-08-16] MEDS: Enoxaparin 40 MG/0.4 ML SYR SUBCUT SCH (21:26)
[2022-08-17] MEDS: Acetaminophen IV 1 GM/100ML 600 MG/60 ML BAG IV PRN ×3 (00:59→18:47)
[2022-08-17 02:57] LABS: PCO2 Arterial 41 mmHg (35-45)
[2022-08-17 02:59] LABS: PO2 Arterial 50 mmHg (80-100)
[2022-08-17 05:31] LABS: ABS Lymphocytes 0.4 10^3/uL (1.0-4.8); ABS Monocytes 0.6 10^3/uL (0.0-0.9); ABS Neutrophils 5.1 10^3/uL (1.5-7.6); ABS Nucleated RBC 0.01 10^3/ul; Eosinophil % 0.4 %; Hematocrit 31.1 % (35-45); Hemoglobin 10.9 g/dL (11.5-14.3); Lymphocyte % 7.1 %; Mean Corpuscular Hemoglobin 33.3 pg (27-33); Mean Corpuscular Hgb Conc 35.1 g/dL (31-36); Mean Platelet Volume 6.4 fL (7.5-11.2); Nucleated Red Blood Cells % 0.1 /100 WBC (0.0-0.4); Platelet Count 330 10^3/uL (150-450); Red Blood Count 3.27 10^6/uL (3.63-4.92); Red Cell Distribution Width 12.6 % (12-17); Venous Bicarbonate HCO3 30.8 mmol/L (24-28); White Blood Count 6.2 10^3/uL (3.8-11.8)
[2022-08-17 05:49] LABS: Calcium 8.7 mg/dL (8.6-10.3); Creatinine, Serum 0.33 mg/dL (0.51-0.95); Magnesium 2.2 mg/dL (1.9-2.7); Potassium 3.8 mmol/L (3.5-5.0); eGFR CKD-EPI 110.1 (>60)
[2022-08-17] MEDS: Albuterol/Ipratropium NEB.SOL (2.5/0.5 MG) 3 ML NEB.SOLN INH SCH ×2 (07:02→19:37)
[2022-08-17] MEDS ORDERED: Albuterol/Ipratropium NEB.SOL (2.5/0.5 MG) 3 ML NEB.SOLN INH PRN (08:15)
[2022-08-17] MEDS ORDERED: Albuterol/Ipratropium NEB.SOL (2.5/0.5 MG) 3 ML NEB.SOLN INH ONE (08:16)
[2022-08-17] MEDS ORDERED: Albuterol/Ipratropium NEB.SOL (2.5/0.5 MG) 3 ML NEB.SOLN ONE (08:23)
[2022-08-17] MEDS: Magnesium Hydroxide LIQ 30 ML UDC PO SCH ×2 (08:34→21:16)
[2022-08-17] MEDS: Pantoprazole VIAL 40 MG VIAL IV SCH (08:35)
[2022-08-17] MEDS: Lidocaine PATCH 5% PATCH TRANSDERM SCH (09:55)
[2022-08-17] MEDS: D5LR 1000 ml BAG 1,000 ML IV SCH (12:32)
[2022-08-17] MEDS: Enoxaparin 40 MG/0.4 ML SYR SUBCUT SCH (21:19)
[2022-08-18] MEDS: D5LR 1000 ml BAG 1,000 ML IV SCH (01:50)
[2022-08-18 04:49] LABS: ABS Lymphocytes 0.4 10^3/uL (1.0-4.8); ABS Monocytes 0.8 10^3/uL (0.0-0.9); ABS Neutrophils 8.4 10^3/uL (1.5-7.6); Eosinophil % 0.3 %; Hematocrit 32.2 % (35-45); Hemoglobin 11.3 g/dL (11.5-14.3); Lymphocyte % 3.9 %; Mean Corpuscular Hemoglobin 33.6 pg (27-33); Mean Corpuscular Hgb Conc 35.2 g/dL (31-36); Mean Corpuscular Volume 95.4 fL (80-97); Mean Platelet Volume 6.7 fL (7.5-11.2); Platelet Count 337 10^3/uL (150-450); Red Blood Count 3.37 10^6/uL (3.63-4.92); Red Cell Distribution Width 12.9 % (12-17); White Blood Count 9.6 10^3/uL (3.8-11.8)
[2022-08-18] MEDS: Acetaminophen IV 1 GM/100ML 600 MG/60 ML BAG IV PRN ×3 (05:02→23:50)
[2022-08-18 05:07] LABS: Calcium 8.6 mg/dL (8.6-10.3); Creatinine, Serum 0.33 mg/dL (0.51-0.95); Magnesium 2.1 mg/dL (1.9-2.7); Potassium 3.7 mmol/L (3.5-5.0); eGFR CKD-EPI 110.1 (>60)
[2022-08-18] MEDS: Albuterol/Ipratropium NEB.SOL (2.5/0.5 MG) 3 ML NEB.SOLN INH SCH ×2 (07:16→19:51)
[2022-08-18] MEDS: Magnesium Hydroxide LIQ 30 ML UDC PO SCH ×2 (08:37→20:55)
[2022-08-18] MEDS: Pantoprazole VIAL 40 MG VIAL IV SCH (08:37)
[2022-08-18] MEDS: Lidocaine PATCH 5% PATCH TRANSDERM SCH (08:38)
[2022-08-18] MEDS ORDERED: KCL 20 MEQ/100 ML IVPREMIX 20 MEQ/100 ML BAG IV ONE (08:45)
[2022-08-18] MEDS: Polyethylene Glycol 3350 17 GM PACKET PO SCH ×3 (11:23→20:56)
[2022-08-18] MEDS: Enoxaparin 40 MG/0.4 ML SYR SUBCUT SCH (20:57)
[2022-08-19 04:51] LABS: ABS Lymphocytes 0.5 10^3/uL (1.0-4.8); ABS Monocytes 0.7 10^3/uL (0.0-0.9); ABS Neutrophils 5.3 10^3/uL (1.5-7.6); Eosinophil % 0.6 %; Hematocrit 31.9 % (35-45); Hemoglobin 11.2 g/dL (11.5-14.3); Lymphocyte % 7.1 %; Mean Corpuscular Hgb Conc 35.2 g/dL (31-36); Mean Corpuscular Volume 96.6 fL (80-97); Mean Platelet Volume 6.7 fL (7.5-11.2); Platelet Count 358 10^3/uL (150-450); Red Blood Count 3.31 10^6/uL (3.63-4.92); Red Cell Distribution Width 12.7 % (12-17); White Blood Count 6.6 10^3/uL (3.8-11.8)
[2022-08-19 04:59] LABS: Calcium 8.5 mg/dL (8.6-10.3); Creatinine, Serum 0.42 mg/dL (0.51-0.95); Magnesium 2.2 mg/dL (1.9-2.7); Potassium 4.4 mmol/L (3.5-5.0); eGFR CKD-EPI 103.9 (>60)
[2022-08-19] MEDS: Albuterol/Ipratropium NEB.SOL (2.5/0.5 MG) 3 ML NEB.SOLN INH SCH (07:24)
[2022-08-19] MEDS: Pantoprazole VIAL 40 MG VIAL IV SCH (07:35)
[2022-08-19] MEDS: Lidocaine PATCH 5% PATCH TRANSDERM SCH (07:37)
[2022-08-19] MEDS: Magnesium Hydroxide LIQ 30 ML UDC PO SCH (07:57)
[2022-08-19] MEDS: Polyethylene Glycol 3350 17 GM PACKET PO SCH (07:59)
[2022-08-19] MEDS: Acetaminophen IV 1 GM/100ML 600 MG/60 ML BAG IV PRN (08:20)
[2022-08-19 13:28] VITALS: BP 144/103
== END 2022-08-19 15:20 | DRG 640 ==
LOC: EDHOLD 16:03 → ED 16:03 → SUATTDRO 08-11 00:03 → MED 08-11 04:45 → SUATTDRO 08-12 13:30 → ICU 08-17 11:34
PROVIDERS: ADMIT Student in an Organized Health Care Education/Training Program; ATTEND Internal Medicine